=== PATIENT | female | born 1940 | race Caucasian/White ===

== ENCOUNTER 2016-08-28 13:55 | Inpatient (IN) | payer MEDICARE, BC, OTHER ==
[2016-08-28] MEDS ORDERED: SODIUM CHLORIDE 0.9% 1,000 ML IV STA ×2 (13:59)
[2016-08-28] MEDS ORDERED: ONDANSETRON 4 MG/2 ML VIAL IVP STA (13:59)
--- NOTE | 2016-08-28 14:12 | ED ---
General Adult HPI - General Stated complaint: Vomiting Time Seen by Provider: 08/28/16 13:59 Source: RN notes reviewed, old records reviewed - History of Present Illness Initial comments: This is a 76-year-old female to the ER for evaluation. Patient presents today for evaluation regarding nausea. Patient states she has some dizziness, epigastric fullness, bloating, nausea. She's had nausea and vomiting now for 2 days. Patient has no medical history of similar symptoms. No abdominal surgical history. No dysuria no diarrhea. No travel history, no sick contacts. No recent hospitalizations. No fevers. Nausea is worse after meals or after eating or trying to attempt to drink. - Related Data Home Medications Medication Instructions Recorded Confirmed Aspirin [Adult Low Dose Aspirin EC] 162 mg PO HS 08/28/16 08/28/16 Cetirizine HCl [Zyrtec] 10 mg PO DAILY 08/28/16 08/28/16 Cholecalciferol [Vitamin D3] 1,000 unit PO HS 08/28/16 08/28/16 Colloidal Oatmeal [Eucerin Eczema 1 applic TOPICAL HS 08/28/16 08/28/16 Relief] Cyclobenzaprine HCl 10 mg PO DAILY PRN 08/28/16 08/28/16 Ibuprofen [Motrin] 800 mg PO Q8H PRN 08/28/16 08/28/16 LORazepam [Ativan] 0.5 mg PO DAILY PRN 08/28/16 08/28/16 Levothyroxine Sodium [Synthroid] 100 mcg PO DAILY 08/28/16 08/28/16 Lisinopril [Prinivil] 10 mg PO DAILY 08/28/16 08/28/16 Meclizine HCl 25 mg PO Q6H PRN 08/28/16 08/28/16 Nystatin 100,000Unit/gm Cream 1 applic TOPICAL BID 08/28/16 08/28/16 [Mycostatin Cream] Polyethylene Glycol 3350 [Miralax] 17 gm PO DAILY PRN 08/28/16 08/28/16 Pramipexole Di-HCl [Mirapex] 0.125 mg PO BID 08/28/16 08/28/16 Pravastatin Sodium [Pravachol] 40 mg PO HS 08/28/16 08/28/16 Sertraline HCl [Zoloft] 50 mg PO DAILY 08/28/16 08/28/16 fentaNYL 100MCG/HR PATCH 1 patch TRANSDERM Q72H 08/28/16 08/28/16 [Duragesic 100MCG/HR] sitaGLIPtin PHOS/metFORMIN HCL 1 tab PO BID 08/28/16 08/28/16 [Janumet 50-1,000 mg Tablet] traMADol HCL [Ultram] 50 mg PO Q8H PRN 08/28/16 08/28/16 Allergies Allergy/AdvReac Type Severity Reaction Status Date / Time Penicillins AdvReac Unknown Verified 08/28/16 14:28 Review of Systems ROS Statement: Those systems with pertinent positive or pertinent negative responses have been documented in the HPI. ROS Other: All systems not noted in ROS Statement are negative. General Exam General appearance: alert, in no apparent distress Head exam: Present: atraumatic, normocephalic, normal inspection Eye exam: Present: normal appearance, PERRL, EOMI. Absent: scleral icterus, conjunctival injection, periorbital swelling ENT exam: Present: normal exam, mucous membranes moist Neck exam: Present: normal inspection. Absent: tenderness, meningismus, lymphadenopathy Respiratory exam: Present: normal lung sounds bilaterally. Absent: respiratory distress, wheezes, rales, rhonchi, stridor Cardiovascular Exam: Present: regular rate, normal rhythm, normal heart sounds. Absent: systolic murmur, diastolic murmur, rubs, gallop, clicks GI/Abdominal exam: Present: soft, normal bowel sounds. Absent: distended, tenderness, guarding, rebound, rigid Extremities exam: Present: normal inspection, full ROM, normal capillary refill. Absent: tenderness, pedal edema, joint swelling, calf tenderness Back exam: Present: normal inspection Neurological exam: Present: alert, oriented X3, CN II-XII intact Psychiatric exam: Present: normal affect, normal mood Skin exam: Present: warm, dry, intact, normal color. Absent: rash Course Vital Signs 08/28/16 08/28/16 08/28/16 14:06 15:37 15:59 Temperature 97.0 F L 97.6 F 97.0 F L Pulse Rate 87 80 Respiratory 18 18 Rate Blood Pressure 165/63 162/100 O2 Sat by Pulse 97 99 Oximetry - Reevaluation(s) Reevaluation #1: 08/28/16 16:41 Patient without vomiting of blood here in emergency room EKG Findings - EKG Comments: EKG Findings:: EKG shows normal sinus rhythm at 71, para 24, QRS 86, QTC 436 Medical Decision Making - Medical Decision Making 36 female here for evaluation of nausea vomiting episode of upper GI bleed, coffee-ground emesis. patient has UTI will place on abx, patient is ok for admission - Lab Data Result diagrams: 08/28/16 14:12 08/28/16 14:12 Lab Results 08/28/16 08/28/16 08/28/16 Range/Units 14:12 14:12 14:12 WBC 9.3 (3.8-10.6) k/uL RBC 4.83 (3.80-5.40) m/uL Hgb 14.6 (11.4-16.0) gm/dL Hct 45.0 (34.0-46.0) % MCV 93.2 (80.0-100.0) fL MCH 30.2 (25.0-35.0) pg MCHC 32.4 (31.0-37.0) g/dL RDW 14.5 (11.5-15.5) % Plt Count 172 (150-450) k/uL Neutrophils % 76 % Lymphocytes % 17 % Monocytes % 4 % Eosinophils % 1 % Basophils % 1 % Neutrophils # 7.0 (1.3-7.7) k/uL Lymphocytes # 1.6 (1.0-4.8) k/uL Monocytes # 0.4 (0-1.0) k/uL Eosinophils # 0.1 (0-0.7) k/uL Basophils # 0.1 (0-0.2) k/uL PT (9.0-12.0) sec INR (<1.2) APTT (22.0-30.0) sec Sodium 141 (137-145) mmol/L Potassium 4.3 (3.5-5.1) mmol/L Chloride 107 (98-107) mmol/L Carbon Dioxide 21 L (22-30) mmol/L Anion Gap 13 mmol/L BUN 13 (7-17) mg/dL Creatinine 0.71 (0.52-1.04) mg/dL Est GFR (MDRD) Af Amer >60 (>60 ml/min/1.73 sqM) Est GFR (MDRD) Non-Af >60 (>60 ml/min/1.73 sqM) Glucose 130 H (74-99) mg/dL Plasma Lactic Acid Eric (0.7-2.0) mmol/L Calcium 9.4 (8.4-10.2) mg/dL Phosphorus 3.0 (2.5-4.5) mg/dL Magnesium 1.4 L (1.6-2.3) mg/dL Total Bilirubin 0.7 (0.2-1.3) mg/dL AST 32 (14-36) U/L ALT 30 (9-52) U/L Alkaline Phosphatase 111 (38-126) U/L Total Creatine Kinase 32 (30-135) U/L CK-MB (CK-2) 0.4 (0.0-2.4) ng/mL CK-MB (CK-2) Rel Index 1.3 Troponin I <0.012 (0.000-0.034) ng/mL Total Protein 6.3 (6.3-8.2) g/dL Albumin 3.1 L (3.5-5.0) g/dL Urine Color Urine Appearance (Clear) Urine pH (5.0-8.0) Ur Specific Mitchell (1.001-1.035) Urine Protein (Negative) Urine Glucose (UA) (Negative) Urine Ketones (Negative) Urine Blood (Negative) Urine Nitrite (Negative) Urine Bilirubin (Negative) Urine Urobilinogen (<2.0) mg/dL Ur Leukocyte Esterase (Negative) Urine RBC (0-5) /hpf Urine WBC (0-5) /hpf Urine WBC Clumps (None) /hpf Urine Bacteria (None) /hpf Urine Mucus (None) /hpf Urine Yeast (Budding) (None) /hpf Blood Type Blood Type Recheck Antibody Screen Antibody Identification Direct Antiglob Test Spec Expiration Date 08/28/16 08/28/16 08/28/16 Range/Units 14:12 14:12 14:12 WBC (3.8-10.6) k/uL RBC (3.80-5.40) m/uL Hgb (11.4-16.0) gm/dL Hct (34.0-46.0) % MCV (80.0-100.0) fL MCH (25.0-35.0) pg MCHC (31.0-37.0) g/dL RDW (11.5-15.5) % Plt Count (150-450) k/uL Neutrophils % % Lymphocytes % % Monocytes % % Eosinophils % % Basophils % % Neutrophils # (1.3-7.7) k/uL Lymphocytes # (1.0-4.8) k/uL Monocytes # (0-1.0) k/uL Eosinophils # (0-0.7) k/uL Basophils # (0-0.2) k/uL PT 12.1 H (9.0-12.0) sec INR 1.2 H (<1.2) APTT 23.8 (22.0-30.0) sec Sodium (137-145) mmol/L Potassium (3.5-5.1) mmol/L Chloride (98-107) mmol/L Carbon Dioxide (22-30) mmol/L Anion Gap mmol/L BUN (7-17) mg/dL Creatinine (0.52-1.04) mg/dL Est GFR (MDRD) Af Amer (>60 ml/min/1.73 sqM) Est GFR (MDRD) Non-Af (>60 ml/min/1.73 sqM) Glucose (74-99) mg/dL Plasma Lactic Acid Eric 3.4 H* (0.7-2.0) mmol/L Calcium (8.4-10.2) mg/dL Phosphorus (2.5-4.5) mg/dL Magnesium (1.6-2.3) mg/dL Total Bilirubin (0.2-1.3) mg/dL AST (14-36) U/L ALT (9-52) U/L Alkaline Phosphatase (38-126) U/L Total Creatine Kinase (30-135) U/L CK-MB (CK-2) (0.0-2.4) ng/mL CK-MB (CK-2) Rel Index Troponin I (0.000-0.034) ng/mL Total Protein (6.3-8.2) g/dL Albumin (3.5-5.0) g/dL Urine Color Urine Appearance (Clear) Urine pH (5.0-8.0) Ur Specific Mitchell (1.001-1.035) Urine Protein (Negative) Urine Glucose (UA) (Negative) Urine Ketones (Negative) Urine Blood (Negative) Urine Nitrite (Negative) Urine Bilirubin (Negative) Urine Urobilinogen (<2.0) mg/dL Ur Leukocyte Esterase (Negative) Urine RBC (0-5) /hpf Urine WBC (0-5) /hpf Urine WBC Clumps (None) /hpf Urine Bacteria (None) /hpf Urine Mucus (None) /hpf Urine Yeast (Budding) (None) /hpf Blood Type O Negative Blood Type Recheck No Antibody Screen POSITIVE Antibody Identification Anti-D Direct Antiglob Test Negative Spec Expiration Date 08/31/2016 - 231108/28/16 Range/Units 15:26 WBC (3.8-10.6) k/uL RBC (3.80-5.40) m/uL Hgb (11.4-16.0) gm/dL Hct (34.0-46.0) % MCV (80.0-100.0) fL MCH (25.0-35.0) pg MCHC (31.0-37.0) g/dL RDW (11.5-15.5) % Plt Count (150-450) k/uL Neutrophils % % Lymphocytes % % Monocytes % % Eosinophils % % Basophils % % Neutrophils # (1.3-7.7) k/uL Lymphocytes # (1.0-4.8) k/uL Monocytes # (0-1.0) k/uL Eosinophils # (0-0.7) k/uL Basophils # (0-0.2) k/uL PT (9.0-12.0) sec INR (<1.2) APTT (22.0-30.0) sec Sodium (137-145) mmol/L Potassium (3.5-5.1) mmol/L Chloride (98-107) mmol/L Carbon Dioxide (22-30) mmol/L Anion Gap mmol/L BUN (7-17) mg/dL Creatinine (0.52-1.04) mg/dL Est GFR (MDRD) Af Amer (>60 ml/min/1.73 sqM) Est GFR (MDRD) Non-Af (>60 ml/min/1.73 sqM) Glucose (74-99) mg/dL Plasma Lactic Acid Eric (0.7-2.0) mmol/L Calcium (8.4-10.2) mg/dL Phosphorus (2.5-4.5) mg/dL Magnesium (1.6-2.3) mg/dL Total Bilirubin (0.2-1.3) mg/dL AST (14-36) U/L ALT (9-52) U/L Alkaline Phosphatase (38-126) U/L Total Creatine Kinase (30-135) U/L CK-MB (CK-2) (0.0-2.4) ng/mL CK-MB (CK-2) Rel Index Troponin I (0.000-0.034) ng/mL Total Protein (6.3-8.2) g/dL Albumin (3.5-5.0) g/dL Urine Color Yellow Urine Appearance Cloudy H (Clear) Urine pH 6.0 (5.0-8.0) Ur Specific Mitchell 1.011 (1.001-1.035) Urine Protein Negative (Negative) Urine Glucose (UA) Negative (Negative) Urine Ketones Negative (Negative) Urine Blood Small H (Negative) Urine Nitrite Positive H (Negative) Urine Bilirubin Negative (Negative) Urine Urobilinogen 2.0 (<2.0) mg/dL Ur Leukocyte Esterase Large H (Negative) Urine RBC 2 (0-5) /hpf Urine WBC 92 H (0-5) /hpf Urine WBC Clumps Occasional H (None) /hpf Urine Bacteria Occasional H (None) /hpf Urine Mucus Rare H (None) /hpf Urine Yeast (Budding) Occasional H (None) /hpf Blood Type Blood Type Recheck Antibody Screen Antibody Identification Direct Antiglob Test Spec Expiration Date Disposition Clinical Impression: Gastrointestinal hemorrhage, UGIB (upper gastrointestinal bleed), Nausea & vomiting Disposition: ADMITTED IP TO THIS [facility] Condition: Fair Referrals: Lasha Johnson MD [Primary Care Provider] - 1-2 days
[2016-08-28] MEDS ORDERED: ESOMEPRAZOLE 20 MG in SODIUM CHLORIDE 0.9% 50 ML IVPB STA (14:19)
[2016-08-28 14:29] LABS: Basophils # (A) 0.1 k/uL (0-0.2); Basophils % (A) 1 %; CH 30.1; CHCM 32.4; Eosinophils # (A) 0.1 k/uL (0-0.7); Eosinophils % (A) 1 %; HDW 2.22; HGB 14.6 gm/dL (11.4-16.0); Luc # (Auto) 0.08; Luc % (Auto) 1; Lymphocytes # (A) 1.6 k/uL (1.0-4.8); Lymphocytes % (A) 17 %; MCH 30.2 pg (25.0-35.0); MCHC 32.4 g/dL (31.0-37.0); MCV 93.2 fL (80.0-100.0); Mean Platelet Volume 8.1; Monocytes # (A) 0.4 k/uL (0-1.0); Monocytes % (A) 4 %; Neutrophils % (A) 76 %; RBC 4.83 m/uL (3.80-5.40); RDW 14.5 % (11.5-15.5); WBC 9.3 k/uL (3.8-10.6); WBC (Perox) 9.02
[2016-08-28 14:34] LABS: INR 1.2 (<1.2); Partial Thromboplastin Time 23.8 sec (22.0-30.0); Prothrombin Time 12.1 sec (9.0-12.0)
[2016-08-28 14:38] LABS: ALT 30 U/L (9-52); AST 32 U/L (14-36); Alkaline Phosphatase 111 U/L (38-126); Anion Gap 13 mmol/L; Blood Urea Nitrogen 13 mg/dL (7-17); Calcium 9.4 mg/dL (8.4-10.2); Carbon Dioxide 21 mmol/L (22-30); Chloride 107 mmol/L (98-107); Glucose 130 mg/dL (74-99); Magnesium 1.4 mg/dL (1.6-2.3); Non-African American GFR(MDRD) >60 (>60 ml/min/1.73 sqM); Potassium 4.3 mmol/L (3.5-5.1); Sodium 141 mmol/L (137-145); Total Bilirubin 0.7 mg/dL (0.2-1.3); Total Protein 6.3 g/dL (6.3-8.2)
[2016-08-28 14:49] LABS: Creatine Kinase 32 U/L (30-135)
[2016-08-28 15:01] LABS: Creatine Kinase MB 0.4 ng/mL (0.0-2.4); Troponin I <0.012 ng/mL (0.000-0.034)
[2016-08-28 15:52] LABS: Appearance,Urine Cloudy (Clear); Bacteria,Urine Occasional /hpf; Bilirubin,Urine Negative (Negative); Glucose,Urine (UA) Negative (Negative); Ketones,Urine Negative (Negative); Leukocyte Esterase,Urine Large (Negative); Mucus,Urine Rare /hpf; Nitrite,Urine Positive (Negative); Particle Count 80585; Protein,Urine Negative (Negative); RBC,Urine 2 /hpf (0-5); Specific Gravity,Urine 1.011 (1.001-1.035); UA Billing (MACRO vs. MICRO) MICRO; WBC,Urine 92 /hpf (0-5)
[2016-08-28] MEDS ORDERED: cefTRIAXone 1,000 MG VIAL (IM USE) IM SCH (16:45)
[2016-08-28] MEDS ORDERED: LORazepam 0.5 MG TAB PO PRN (19:44)
[2016-08-28] MEDS ORDERED: MORPHINE SULFATE 4 MG/ML SYRINGE IVP PRN (19:46)
[2016-08-28] MEDS ORDERED: ONDANSETRON 4 MG/2 ML VIAL IVP PRN (19:57)
[2016-08-28 20:53] VITALS: BMI 54.1
--- NOTE | 2016-08-29 01:17 | XR ---
EXAM: XR Chest, 1 View CLINICAL HISTORY: Reason: r/o heart failure TECHNIQUE: Frontal view of the chest. COMPARISON: No relevant prior studies available. FINDINGS: Lungs: Mild pulmonary vascular congestion which may reflect a degree of failure. No consolidation. Pleural space: Unremarkable. No pneumothorax. Heart: Unremarkable. No cardiomegaly. Mediastinum: Unremarkable. Bones/joints: Unremarkable. Vasculature: Tortuous aorta. IMPRESSION: Mild pulmonary vascular congestion which may reflect a degree of failure.
[2016-08-29] MEDS ORDERED: POLYETHYLENE GLYCOL 3350 17 GM POWD.PACK PO PRN (01:25)
[2016-08-29] MEDS ORDERED: traMADol 50 MG TAB PO PRN (01:25)
[2016-08-29] MEDS ORDERED: MECLIZINE 25 MG TAB PO PRN (01:25)
[2016-08-29] MEDS ORDERED: HYDROmorphone 1 MG/ML 1 ML SYRINGE IVP PRN (01:26)
[2016-08-29] MEDS ORDERED: MINERAL OIL-WHITE PETROLATUM 120 GM JAR TOPICAL PRN (02:17)
[2016-08-29 02:36] LABS: CH 29.7; CHCM 30.8; HDW 2.26; HGB 12.4 gm/dL (11.4-16.0); Hypochromasia Slight; MCH 30.8 pg (25.0-35.0); MCHC 31.8 g/dL (31.0-37.0); MCV 96.8 fL (80.0-100.0); RBC 4.03 m/uL (3.80-5.40); RDW 14.4 % (11.5-15.5)
[2016-08-29 02:44] LABS: Anion Gap 8 mmol/L; Blood Urea Nitrogen 13 mg/dL (7-17); Calcium 8.8 mg/dL (8.4-10.2); Carbon Dioxide 22 mmol/L (22-30); Chloride 110 mmol/L (98-107); Glucose 95 mg/dL (74-99); Non-African American GFR(MDRD) >60 (>60 ml/min/1.73 sqM); Sodium 140 mmol/L (137-145)
[2016-08-29 05:48] LABS: Glucose,Whole Blood 95 mg/dL (75-99)
[2016-08-29] MEDS: INSULIN LISPRO (humaLOG) 300 UNIT/3 ML VIAL SQ SCH ×4 (05:54→21:15)
[2016-08-29] MEDS: LEVOTHYROXINE 100 MCG TAB PO SCH (06:26)
[2016-08-29] MEDS: LISINOPRIL 10 MG TAB PO SCH (08:19)
[2016-08-29] MEDS: LORATADINE 10 MG TAB PO SCH (08:20)
[2016-08-29] MEDS: SERTRALINE 50 MG TAB PO SCH (08:20)
[2016-08-29] MEDS: PRAMIPEXOLE 0.125 MG TAB PO SCH ×2 (08:20→19:51)
[2016-08-29] MEDS ORDERED: Magnesium Replacement Protocol 1 EACH MISC MISCELLANE PRN (08:52)
[2016-08-29] MEDS: MAGNESIUM SULFATE-D5W PMX 1 GM in DEXTROSE/WATER 1 100ML.BAG IVPB SCH ×3 (09:26→12:30)
--- NOTE | 2016-08-29 10:01 | P.CONS ---
History of Present Illness - Reason for Consult Consult date: 08/29/16 Coffee-ground emesis Requesting physician: Aicha Xie - History of Present Illness 76-year-old female wheelchair bound. PMH morbid obesity BMI 55 admitted with nausea vomiting UTI. Consultation requested for coffee-ground emesis. Patient stated she vomited 3 times the other day mostly food substances as well as small amount of dark colored bile. Denies epigastric/abdominal pain. No history of GI bleed or peptic ulcer disease. Denies gross hematemesis hematochezia or melena. Presently eating a regular diet without recurrent emesis or bleeding. Hemoglobin 12.4. BUN 13. Creatinine 0.6. INR 1.2. Platelet 161. Denies excessive usage of NSAIDs or aspirin. Takes 2 baby aspirins daily and occasional Motrin. No alcohol. No history of colonoscopy or EGD. Review of Systems Constitutional: Denies fever, chills, sweats, weight gain, or loss. HEENT: Negative for migraines, blurred vision or loss, earaches, drainage, tinnitus, oral mucosal lesions, dysphagia, or odynophagia. CARDIAC: Hyperlipidemia. Hypertension. Negative for chest pain, arrhythmias, or palpitation. RESPIRATORY: Negative for shortness of breath, hemoptysis, cough, or sputum production. GI: See HPI for pertinent findings. : Negative for hematuria, urgency, frequency, polyuria, or dysuria. GYNc: Denies possibility of . Negative vaginal discharge. MUSCULOSKELETAL: RLS. Negative for muscle aches, swelling, arthritis, and arthralgias. NEUROLOGIC: CVA/TIA. ENDOCRINE: Diabetes. Negative for thyroid problems. SKIN: Negative for rash or itching. PSYCHIATRIC: Negative history for depression. History of anxiety All systems: negative (See HPI) Past Medical History Past Medical History: CVA/TIA, Diabetes Mellitus, Hyperlipidemia, Hypertension, Osteoarthritis (OA) Additional Past Medical History / Comment(s): RLS History of Any Multi-Drug Resistant Organisms: None Reported Past Surgical History: Hysterectomy, Tonsillectomy Past Anesthesia/Blood Transfusion Reactions: No Reported Reaction Past Psychological History: Anxiety Smoking Status: Former smoker Past Alcohol Use History: None Reported Past Drug Use History: None Reported - Past Family History Mother Family Medical History: Cancer Father Family Medical History: No Reported History Medications and Allergies Home Medications Medication Instructions Recorded Confirmed Type Aspirin [Adult Low Dose Aspirin EC] 162 mg PO HS 08/28/16 08/29/16 History Cetirizine HCl [Zyrtec] 10 mg PO DAILY 08/28/16 08/29/16 History Cholecalciferol [Vitamin D3] 1,000 unit PO HS 08/28/16 08/28/16 History Colloidal Oatmeal [Eucerin Eczema 1 applic TOPICAL HS 08/28/16 08/29/16 History Relief] Cyclobenzaprine HCl 10 mg PO DAILY PRN 08/28/16 08/29/16 History Ibuprofen [Motrin] 800 mg PO Q8H PRN 08/28/16 08/29/16 History LORazepam [Ativan] 0.5 mg PO DAILY PRN 08/28/16 08/29/16 History Levothyroxine Sodium [Synthroid] 100 mcg PO DAILY 08/28/16 08/29/16 History Lisinopril [Prinivil] 10 mg PO DAILY 08/28/16 08/29/16 History Meclizine HCl 25 mg PO Q6H PRN 08/28/16 08/29/16 History Nystatin 100,000Unit/gm Cream 1 applic TOPICAL BID 08/28/16 08/29/16 History [Mycostatin Cream] Polyethylene Glycol 3350 [Miralax] 17 gm PO DAILY PRN 08/28/16 08/29/16 History Pramipexole Di-HCl [Mirapex] 0.125 mg PO BID 08/28/16 08/29/16 History Pravastatin Sodium [Pravachol] 40 mg PO HS 08/28/16 08/29/16 History Sertraline HCl [Zoloft] 50 mg PO DAILY 08/28/16 08/29/16 History fentaNYL 100MCG/HR PATCH 1 patch TRANSDERM Q72H 08/28/16 08/29/16 History [Duragesic 100MCG/HR] sitaGLIPtin PHOS/metFORMIN HCL 1 tab PO BID 08/28/16 08/29/16 History [Janumet 50-1,000 mg Tablet] traMADol HCL [Ultram] 50 mg PO Q8H PRN 08/28/16 08/29/16 History Allergies Allergy/AdvReac Type Severity Reaction Status Date / Time Penicillins AdvReac Unknown Verified 08/28/16 20:36 Physical Exam Vitals: Vital Signs Temp Pulse Pulse Resp BP BP Pulse Ox 08/29/16 08:20 96.8 F L 76 18 121/58 96 08/29/16 04:00 97.8 F 76 16 115/59 92 L 08/29/16 00:00 97.0 F L 81 16 128/86 94 L 08/28/16 20:02 97.3 F L 92 18 159/77 97 08/28/16 17:26 98.0 F 72 18 152/79 99 08/28/16 16:58 97.6 F 81 18 153/100 98 08/28/16 15:59 97.0 F L 80 18 162/100 99 08/28/16 15:37 97.6 F 08/28/16 14:06 97.0 F L 87 18 165/63 97 Intake and Output 08/28/16 08/29/16 08/29/16 22:59 06:59 14:59 Intake Total 600 Balance 600 Intake: IV 600 Sodium Chloride 0.9% 1, 600 000 ml @ 100 mls/hr IV . Q10H STA Rx#:[id number] Other: Voiding Method Bedpan Bedpan Incontinent Incontinent # Voids 1 Weight 143 kg 145 kg General appearance: The patient is alert, oriented, in no acute distress. HET: Head is normocephalic and atraumatic. Pupils are equal and reactive. Oropharynx is clear without lesions. Neck: Supple without lymphadenopathy. Trachea midline. Heart: S1 S2. Regular rate and rhythm. Lungs: No crackles or wheezes are heard. Abdomen: Soft, nontender, nondistended with bowel sounds. No peritoneal signs. No palpable organomegaly or masses. Extremities: Normal skin color and turgor. No cyanosis, rash, ulceration, clubbing, or edema. Radial and pedal pulses are 2/4 bilaterally. Neurological: No focal deficits. Strength and sensation are grossly intact. Results CBC & Chem 7: 08/29/16 02:05 08/29/16 02:05 Labs: Abnormal Lab Results - Last 24 Hours (Table) 08/28/16 08/28/16 08/28/16 Range/Units 14:12 14:12 14:12 PT 12.1 H (9.0-12.0) sec INR 1.2 H (<1.2) Chloride (98-107) mmol/L Carbon Dioxide 21 L (22-30) mmol/L Glucose 130 H (74-99) mg/dL Plasma Lactic Acid Eric 3.4 H* (0.7-2.0) mmol/L Magnesium 1.4 L (1.6-2.3) mg/dL Albumin 3.1 L (3.5-5.0) g/dL Urine Appearance (Clear) Urine Blood (Negative) Urine Nitrite (Negative) Ur Leukocyte Esterase (Negative) Urine WBC (0-5) /hpf Urine WBC Clumps (None) /hpf Urine Bacteria (None) /hpf Urine Mucus (None) /hpf Urine Yeast (Budding) (None) /hpf 08/28/16 08/28/16 08/28/16 Range/Units 15:26 18:32 22:21 PT (9.0-12.0) sec INR (<1.2) Chloride (98-107) mmol/L Carbon Dioxide (22-30) mmol/L Glucose (74-99) mg/dL Plasma Lactic Acid Eric 3.6 H* 2.5 H* (0.7-2.0) mmol/L Magnesium (1.6-2.3) mg/dL Albumin (3.5-5.0) g/dL Urine Appearance Cloudy H (Clear) Urine Blood Small H (Negative) Urine Nitrite Positive H (Negative) Ur Leukocyte Esterase Large H (Negative) Urine WBC 92 H (0-5) /hpf Urine WBC Clumps Occasional H (None) /hpf Urine Bacteria Occasional H (None) /hpf Urine Mucus Rare H (None) /hpf Urine Yeast (Budding) Occasional H (None) /hpf 08/29/16 Range/Units 02:05 PT (9.0-12.0) sec INR (<1.2) Chloride 110 H (98-107) mmol/L Carbon Dioxide (22-30) mmol/L Glucose (74-99) mg/dL Plasma Lactic Acid Eric (0.7-2.0) mmol/L Magnesium (1.6-2.3) mg/dL Albumin (3.5-5.0) g/dL Urine Appearance (Clear) Urine Blood (Negative) Urine Nitrite (Negative) Ur Leukocyte Esterase (Negative) Urine WBC (0-5) /hpf Urine WBC Clumps (None) /hpf Urine Bacteria (None) /hpf Urine Mucus (None) /hpf Urine Yeast (Budding) (None) /hpf Microbiology - Last 24 Hours (Table) 08/28/16 15:26 Urine Culture - Preliminary Urine,Catheterized Assessment and Plan (1) Coffee ground emesis Narrative/Plan: Suspect Delisa-Anderson tear possible gastritis possible esophagitis. Status: Acute (2) UTI (urinary tract infection) Status: Acute (3) UGIB (upper gastrointestinal bleed) Status: Acute Plan: 1. Patient is presently tolerating a regular diet without recurrent nausea vomiting or bleeding. Continue GI prophylaxis. Monitor CBC. Endoscopic exams not planned at this time but contingent on clinical course. Will reevaluate. Thank you for this kind referral and the opportunity to participate in the care of your patient. This consultation was discussed with Dr. Escamilla. The impression and plan of care have been directed as dictated.
[2016-08-29 11:57] LABS: Glucose,Whole Blood 140 mg/dL (75-99)
[2016-08-29 13:12] LABS: Hemoglobin A1C 5.2 % (4.2-6.1)
--- NOTE | 2016-08-29 15:29 | HP ---
DATE OF ADMISSION: 08/28/16 CHIEF COMPLAINT: Vomiting and gastrointestinal bleed. HISTORY OF PRESENT ILLNESS: This is a 76-year-old woman with a past medical history of multiple medical problems including history of cerebrovascular accident/transient ischemic attack, history of diabetes mellitus, hypertension, hyperlipidemia , history of restless leg syndrome, being followed by Dr. Lozada in the outpatient setting, resident of [facility] [place]. The patient apparently had nausea today. Subsequently, the patient had vomiting. The patient also had dizziness, epigastric fullness and bloating and the patient was apparently monitored for the last two days, the patient also had coffee ground emesis, upper gastrointestinal bleeding and the patient was taken to [facility] and admitted to the hospital for further evaluation and treatment. CBC was within normal limits. Hemoglobin 14.6, however, lactic acid was found to be 3.4 and 2.5. UA shows evidence of UTI also. There is no history of fever, rigors or chills. There is no history of any headache, loss of consciousness or seizures. Past medical history of CVA/TIA, diabetes mellitus, hypertension, hyperlipidemia , DJD. History of anxiety. Medications prior to admission are: Home medications are: 1. Miralax 17 mg daily prn. 2. Meclizine 25 mg q.h.s. 3. Ultram 50 mg. 4. Motrin. 5. Flexeril. 6. Mirapex. 8. Nystatin one application b.i.d. 9. mg po b.i.d. 10. Zoloft 50 mg daily. 11. Pravachol 40 mg q.h.s. 12. Vitamin D3 1000 q.h.s. 13. Prinivil 10 mg daily. 14. Synthroid 100 mcg po daily. 15. Duragesic patch 100 mcg q72 hours. 16. Eucerin q.h.s. 18. Aspirin 160 mg q.h.s. ALLERGIES: PENICILLIN. FAMILY HISTORY: History of cancer in the family. SOCIAL HISTORY: Previous history of smoking. No history of current alcohol intake. REVIEW OF SYSTEMS: ENT: Diminished vision. Diminished hearing. Cardiovascular : No angina or palpitations. Respiratory: As mentioned earlier. GI: As mentioned earlier. : As mentioned earlier. Nervous system: No numbness or weakness. Allergy/Immunology: No asthma or hayfever. Musculoskeletal: As mentioned earlier. Hematology/Oncology: No history of anemia. Endocrine: History of diabetes mellitus. No hypothyroidism. Constitutional: As mentioned earlier. Dermatology: As mentioned earlier. Rheumatology: Negative. Psychiatry: As mentioned earlier. PHYSICAL EXAMINATION: Alert and oriented times three. Pulse 81. Blood pressure 128/86. Respiratory rate 16, temperature 97 degrees. Pulse ox 94% on room air. HEENT: Conjunctivae normal. Oral mucosa moist. NECK: No JVD. No carotid bruit. No lymph node enlargement. Cardiovascular: S1, S2 muffled. No S3, no S4. Respiratory: Breath sounds diminished at the bases. Bilateral scattered rhonchi and crackles. Abdomen is soft. Obese. Nontender. No mass palpable. Legs: Bilateral leg edema. Dry skin and erythema also noted. Nervous system: Higher functions as mentioned earlier. Moves all four limbs. No focal motor or sensory deficits. Lymphatics: No lymph nodes palpable in the neck, axillae or groin. SKIN: No ulcer, rash or bleeding. LABS: CBC within normal limits. INR 1.2. Plasma lactic acid 3.4, 3.6 and 2.5. Magnesium 1.4. UA noted. ASSESSMENT: 1. Vomiting, possible upper gastrointestinal bleeding, rule out peptic ulcer disease, or gastritis. 2. Increased plasma lactic acid, possibly from urinary tract infection and dehydration. 3. Urinary tract infection with possible sepsis. 4. History of cerebrovascular accident/transient ischemic attack. 5. Diabetes mellitus, Type 2. 6. Hypertension. 7. Hyperlipidemia. 8. Degenerative joint disease. 9. Restless leg syndrome. 10. History of anxiety. RECOMMENDATIONS AND DISCUSSION: In this 76-year-old woman who presented with multiple complex medical issues, we will monitor the patient closely. Continue the current medications. Continue symptomatic treatment. Broad spectrum IV antibiotics. Resume the home medications. Deep venous thrombosis prophylaxis. IV fluids. Otherwise, we will resume other medications. See orders for further details. We will also check Accu-Cheks a.c. and q.h.s. also. Otherwise, prognosis is guarded because of the multiple complex medical issues. Further recommendations to follow. See orders for further details. Discussed with the patient. MTDD
[2016-08-29] MEDS: CEFUROXIME 250 MG TAB PO SCH (19:51)
[2016-08-29] MEDS: PRAVASTATIN SODIUM 40 MG TAB PO SCH (19:53)
[2016-08-29 20:09] LABS: Glucose,Whole Blood 108 mg/dL (75-99)
[2016-08-29 21:12] LABS: Glucose,Whole Blood 104 mg/dL (75-99)
[2016-08-29 21:17] VITALS: RESP 16
[2016-08-30] MEDS: LEVOTHYROXINE 100 MCG TAB PO SCH (05:57)
[2016-08-30 07:32] LABS: Glucose,Whole Blood 109 mg/dL (75-99)
[2016-08-30] MEDS: INSULIN LISPRO (humaLOG) 300 UNIT/3 ML VIAL SQ SCH ×4 (07:49→21:31)
[2016-08-30] MEDS: CEFUROXIME 250 MG TAB PO SCH (08:45)
[2016-08-30] MEDS: PRAMIPEXOLE 0.125 MG TAB PO SCH ×2 (08:45→21:36)
[2016-08-30] MEDS: LISINOPRIL 10 MG TAB PO SCH (08:45)
[2016-08-30] MEDS: LORATADINE 10 MG TAB PO SCH (08:45)
[2016-08-30] MEDS: SERTRALINE 50 MG TAB PO SCH (08:45)
--- NOTE | 2016-08-30 10:12 | P.PN ---
Subjective Principal diagnosis: Coffee-ground emesis 76-year-old female with acute UTI and multiple emesis possible coffee-ground. No recurrence of coffee-ground emesis. Patient is tolerating a regular diet without abdominal pain. Nursing reports no episodes of hematemesis or melena. Hemoglobin yesterday 12.4. CBC not obtained today. Objective - Vital Signs Vital signs: Vital Signs Temp 96.6 F L 08/30/16 07:00 Pulse 80 08/30/16 07:00 Resp 16 08/30/16 07:00 BP 112/50 08/30/16 07:00 Pulse Ox 94 L 08/30/16 07:00 Intake & Output 08/29/16 08/30/16 08/30/16 18:59 06:59 18:59 Intake Total 400 240 Balance 400 240 Intake: Intake, IV Titration 300 Amount Magnesium Sulfate-D5w Pmx 300 1 gm In Dextrose/Water 1 100ml.bag @ 100 mls/hr IVPB Q1H ALLY Rx#: [id number] Oral 100 240 Other: Voiding Method Bedpan Incontinent # Voids 1 - Exam General appearance: The patient is alert, oriented, in no acute distress. HET: Head is normocephalic and atraumatic. Pupils are equal and reactive. Oropharynx is clear without lesions. Neck: Supple without lymphadenopathy. Trachea midline. Heart: S1 S2. Regular rate and rhythm. Lungs: No crackles or wheezes are heard. Abdomen: Soft, nontender, nondistended with bowel sounds. No peritoneal signs. No palpable organomegaly or masses. Extremities: Normal skin color and turgor. No cyanosis, rash, ulceration, clubbing, or edema. Radial and pedal pulses are 2/4 bilaterally. Neurological: No focal deficits. Strength and sensation are grossly intact. - Labs CBC & Chem 7: 08/29/16 02:05 08/29/16 02:05 Labs: Abnormal Lab Results - Last 24 Hours (Table) 08/29/16 08/29/16 08/29/16 Range/Units 11:50 17:03 21:07 POC Glucose (mg/dL) 140 H 108 H 104 H (75-99) mg/dL 08/30/16 Range/Units 07:29 POC Glucose (mg/dL) 109 H (75-99) mg/dL Microbiology - Last 24 Hours (Table) 08/29/16 02:05 Blood Culture - Preliminary Blood No Growth after 24 hours 08/28/16 15:26 Urine Culture - Preliminary Urine,Catheterized Gram Neg Bacilli Assessment and Plan (1) Coffee ground emesis Narrative/Plan: Suspect Delisa-Anderson tear possible gastritis possible esophagitis. Status: Acute (2) UTI (urinary tract infection) Status: Acute (3) UGIB (upper gastrointestinal bleed) Status: Acute Plan: 1. Patient is presently tolerating a regular diet without recurrent nausea vomiting or bleeding. Continue GI prophylaxis. Monitor CBC. Endoscopic exams not planned at this time. We'll follow as needed. Discharge per medicine. Assessment and plan a care discussed with Dr. Escamilla
[2016-08-30 11:31] LABS: Glucose,Whole Blood 142 mg/dL (75-99)
[2016-08-30] MEDS: ceFAZolin 1,000 MG in DEXTROSE/WATER 1 50ML.BAG IVPB SCH ×2 (15:46→23:37)
--- NOTE | 2016-08-30 16:12 | PN ---
DATE OF SERVICE: 08/29/16 This 76-year-old woman who was admitted with vomiting and possible GI bleed, also appears to have UTI. Urine culture showing gram negative bacilli. Hemoglobin is rather stable around 12.4 down from 14.6. Lactic acid improved from 1 to 1.8 from 2.6. Gastroenterology has evaluated the patient and recommended advanced diet at this time. The possibility of Delisa-Anderson syndrome also noted. Past medical history reviewed. Review of systems: CARDIOVASCULAR: No angina or palpitations. Respiratory: As mentioned earlier. GI: As mentioned earlier. : No dysuria. Nervous system: Diffusely weak. Current mediations are reviewed and include: 1. Ceftin 500 mg po b.i.d. 2. Dilaudid 0.5 mg q6h. 3. Synthroid. 4. Zestril. 5. Claritin. 6. Ativan. 7. Antivert. 8. Zofran. 9. Miralax. 10. Pravachol. On exam, the patient is alert and oriented times two. Pulse 92. Blood pressure is 130/52. Respiratory rate 16. Temperature 97.3 degrees. Pulse ox 94% on room air. HEENT: Conjunctivae normal. NECK: No JVD. Cardiovascular: S1, S2 muffled. Respiratory: Breath sounds diminished at the bases. Scattered rhonchi and crackles. Abdomen is soft. Nontender. No mass palpable. Legs: No edema. No swelling. Nervous system: Diffusely weak. The labs are reviewed. Lactic acid is 1.8. CBC within normal limits. FINAL ASSESSMENT: 1. Vomiting postoperative gastrointestinal bleeding, rule out peptic ulcer disease, gastritis or Delisa-Anderson syndrome. 2. Urinary tract infarct with sepsis, present on admission with increased plasma lactic acid. 3. History of cerebrovascular accident/transient ischemic attack. 4. Diabetes mellitus Type 2. 5. Hypertension. 6. Hyperlipidemia. 7. Degenerative joint disease. 8. Restless leg syndrome. 9. History of anxiety. RECOMMENDATIONS AND DISCUSSION: Recommend to continue the current medications. Continue with monitoring. Symptomatic treatment. Otherwise, closely monitor. Continue with antibiotics. Continue the rest of the medications. Closely follow with gastroenterology. Guarded prognosis. Further recommendations to follow. MTDD
[2016-08-30 18:10] LABS: Glucose,Whole Blood 126 mg/dL (75-99)
[2016-08-30 21:24] LABS: Glucose,Whole Blood 94 mg/dL (75-99)
[2016-08-30] MEDS: PRAVASTATIN SODIUM 40 MG TAB PO SCH (21:36)
[2016-08-31] MEDS: LEVOTHYROXINE 100 MCG TAB PO SCH (05:20)
--- NOTE | 2016-08-31 07:17 | PN ---
DATE OF SERVICE: 08/30/2016 This is a 76-year-old woman who was admitted with vomiting and GI bleed, also had a UTI with sepsis also. Patient is complaining of tiredness and weakness. No fever, no cough. On exam, alert and oriented x3. Pulse 80, blood pressure 112/55, respirations 16, temperature 98.6, pulse ox 94% on room air. HEENT: Conjunctivae are normal. NECK: No jugular venous distension. CARDIOVASCULAR SYSTEM: S1, S2, muffled. RESPIRATORY: Breath sounds diminished at the bases, a few scattered rhonchi, no crackles. ABDOMEN: Soft, nontender, no mass palpable. NERVOUS SYSTEM: Unchanged. Labs are noted. ASSESSMENT: 1. Vomiting, possible upper gastrointestinal bleeding, rule out peptic ulcer disease and gastritis. 2. Increased plasma lactic acid, possible urinary tract infection with sepsis and dehydration. 3. History of cerebrovascular accident and transient ischemic attack. 4. Diabetes mellitus type 2. 5. Hypertension. RECOMMENDATION: Recommend to continue with the current medication and symptomatic treatment. Continue with IV antibiotics. Follow the cultures. Guarded prognosis because of multiple complex medical issues. Further recommendations to follow. MTDD
[2016-08-31 07:27] LABS: Glucose,Whole Blood 102 mg/dL (75-99)
[2016-08-31 07:36] VITALS: BP 130/63; PULSE 69; TEMP 96.4
[2016-08-31] MEDS: INSULIN LISPRO (humaLOG) 300 UNIT/3 ML VIAL SQ SCH ×3 (08:21→17:32)
[2016-08-31] MEDS: LORATADINE 10 MG TAB PO SCH (08:22)
[2016-08-31] MEDS: LISINOPRIL 10 MG TAB PO SCH (08:22)
[2016-08-31] MEDS: ceFAZolin 1,000 MG in DEXTROSE/WATER 1 50ML.BAG IVPB SCH (08:22)
[2016-08-31] MEDS: PRAMIPEXOLE 0.125 MG TAB PO SCH (08:22)
[2016-08-31] MEDS: SERTRALINE 50 MG TAB PO SCH (08:22)
[2016-08-31 12:34] LABS: Glucose,Whole Blood 108 mg/dL (75-99)
--- NOTE | 2016-08-31 13:46 | P.DS ---
Providers Date of admission: 08/28/16 16:33 Attending physician: Aicha Xie Primary care physician: [facility] Course: This 76-year-old woman was admitted with vomiting and suspected with GI bleeding. Patient improved significantly. The patient also had UTI with sepsis present on admission possibly chronic. Plasma lactic acid elevated. Patient responded to antibiotics. On exam vitals are stable. Cardio system S1- S2 normal. Abdomen soft nontender nervous system no change. The patient improved significantly. The patient is being discharged back to [facility]. Total time taken is 35 minutes. Final diagnosis 1. UTI with sepsis and due to E. coli as on admission. 2. Vomiting possible acute gastritis. 3. Increased vascular lactic acid secondary to sepsis 4. Diabetes type 2 5. Hypertension Patient Condition at Discharge: Fair Plan - Discharge Summary New Discharge Prescriptions: New Cefuroxime [Ceftin] 500 mg PO BID #10 tab LORazepam [Ativan] 0.5 mg PO HS PRN #10 tab PRN Reason: Agitation INSULIN LISPRO (HumaLOG) [humaLOG] 0 unit SQ ACHS #1 vial Pantoprazole Sodium [Protonix] 40 mg PO DAILY #1 tablet.dr Calcium Carbonate [Tums] 500 mg PO BID #1 chewable Sucralfate [Carafate] 1 gm PO ACHS #120 tablet INSULIN LISPRO (HumaLOG) [humaLOG] 0 unit SQ ACHS #1 vial Continue Polyethylene Glycol 3350 [Miralax] 17 gm PO DAILY PRN PRN Reason: Constipation Meclizine HCl 25 mg PO Q6H PRN PRN Reason: DIZZINESS Cyclobenzaprine HCl 10 mg PO DAILY PRN PRN Reason: Muscle Spasm Pramipexole Di-HCl [Mirapex] 0.125 mg PO BID Nystatin 100,000Unit/gm Cream [Mycostatin Cream] 1 applic TOPICAL BID Sertraline HCl [Zoloft] 50 mg PO DAILY Pravastatin Sodium [Pravachol] 40 mg PO HS Cholecalciferol [Vitamin D3] 1,000 unit PO HS Lisinopril [Prinivil] 10 mg PO DAILY Levothyroxine Sodium [Synthroid] 100 mcg PO DAILY Colloidal Oatmeal [Eucerin Eczema Relief] 1 applic TOPICAL HS Cetirizine HCl [Zyrtec] 10 mg PO DAILY traMADol HCL [Ultram] 50 mg PO Q8H PRN #20 PRN Reason: Pain Discontinued Ibuprofen [Motrin] 800 mg PO Q8H PRN PRN Reason: Pain fentaNYL 100MCG/HR PATCH [Duragesic 100MCG/HR] 1 patch TRANSDERM Q72H Aspirin [Adult Low Dose Aspirin EC] 162 mg PO HS Discharge Medication List Cetirizine HCl [Zyrtec] 10 mg PO DAILY 08/28/16 [History] Cholecalciferol [Vitamin D3] 1,000 unit PO HS 08/28/16 [History] Colloidal Oatmeal [Eucerin Eczema Relief] 1 applic TOPICAL HS 08/28/16 [History] Cyclobenzaprine HCl 10 mg PO DAILY PRN 08/28/16 [History] Levothyroxine Sodium [Synthroid] 100 mcg PO DAILY 08/28/16 [History] Lisinopril [Prinivil] 10 mg PO DAILY 08/28/16 [History] Meclizine HCl 25 mg PO Q6H PRN 08/28/16 [History] Nystatin 100,000Unit/gm Cream [Mycostatin Cream] 1 applic TOPICAL BID 08/28/16 [ History] Polyethylene Glycol 3350 [Miralax] 17 gm PO DAILY PRN 08/28/16 [History] Pramipexole Di-HCl [Mirapex] 0.125 mg PO BID 08/28/16 [History] Pravastatin Sodium [Pravachol] 40 mg PO HS 08/28/16 [History] Sertraline HCl [Zoloft] 50 mg PO DAILY 08/28/16 [History] Cefuroxime [Ceftin] 500 mg PO BID #10 tab 08/30/16 [Rx] INSULIN LISPRO (HumaLOG) [humaLOG] 0 unit SQ ACHS #1 vial 08/30/16 [Rx] LORazepam [Ativan] 0.5 mg PO HS PRN #10 tab 08/30/16 [Rx] Pantoprazole Sodium [Protonix] 40 mg PO DAILY #1 tablet 08/30/16 [Rx] traMADol HCL [Ultram] 50 mg PO Q8H PRN #20 08/30/16 [Rx] Calcium Carbonate [Tums] 500 mg PO BID #1 chewable 08/31/16 [Rx] INSULIN LISPRO (HumaLOG) [humaLOG] 0 unit SQ ACHS #1 vial 08/31/16 [Rx] Sucralfate [Carafate] 1 gm PO ACHS #120 tablet 08/31/16 [Rx] Follow up Appointment(s)/Referral(s): Lasha Johnson MD [Primary Care Provider] - 3 Days Gaby Escamilla MD [STAFF PHYSICIAN] - 2 Weeks Patient Instructions/Handouts: Gastrointestinal Bleeding (DC) Activity/Diet/Wound Care/Special Instructions: [facility] Aspirin on hold Diet: Cardiac, diabetic, bland diet Accu-Cheks before meals and at bedtime Activity: as tolerated cbc,bmp in 3 days Discharge Disposition: TRANSFER TO SNF/F
== END 2016-08-31 17:38 | DRG 871 ==
LOC: EC 13:55 → 6SEL 16:33 → 4MS4W 08-29 20:39
PROVIDERS: ADMIT Hospitalist; ATTEND Hospitalist
DX: A41.51 Sepsis due to Escherichia coli [E. coli] (principal); K29.01 Acute gastritis with bleeding; N39.0 Urinary tract infection, site not specified; E11.9 Type 2 diabetes mellitus without complications; E86.0 Dehydration; E66.01 Morbid (severe) obesity due to excess calories; I10 Essential (primary) hypertension; E78.5 Hyperlipidemia, unspecified; G25.81 Restless legs syndrome; M19.90 Unspecified osteoarthritis, unspecified site; F41.9 Anxiety disorder, unspecified; R32 Unspecified urinary incontinence; H91.90 Unspecified hearing loss, unspecified ear; H54.7 Unspecified visual loss; Z68.43 Body mass index [BMI] 50.0-59.9, adult; Z79.82 Long term (current) use of aspirin; Z79.899 Other long term (current) drug therapy; Z79.84 Long term (current) use of oral hypoglycemic drugs; Z87.891 Personal history of nicotine dependence; Z99.3 Dependence on wheelchair; Z88.8 Allergy status to other drugs, medicaments and biological substances
CPT/HCPCS: 36415; 71010; 80048; 80053; 81001; 82550; 82553; 83036; 83605; 83735; 84100; 84484; 85025; 85027; 85610; 85730; 86850; 86870; 86880; 86900; 86901; 86902; 87040; 87077; 87086; 87186; 93005; 96361; 96365; 96367; 96375; 99285

== ENCOUNTER 2017-03-28 06:32 | Inpatient (IN) | payer MEDICARE, BC, OTHER ==
[2017-03-28] MEDS ORDERED: SODIUM CHLORIDE 0.9% 1,000 ML IV STA (06:39)
--- NOTE | 2017-03-28 06:41 | ED ---
General Adult HPI - General Stated complaint: poss stroke Time Seen by Provider: 03/28/17 06:36 Source: RN notes reviewed, old records reviewed - History of Present Illness Initial comments: This is a 76-year-old female to the ER for evaluation regarding altered mental status, possible TIA. Patient has history of CVA diabetes hypertension. History of TIA. Patient's brought in today for mental lodged for evaluation. Of unresponsiveness blank stare and left-sided weakness. At this point patient is awake and alert is responding to questions. No known change in medications. Patient denies complaint - Related Data Home Medications Medication Instructions Recorded Confirmed Cetirizine HCl [Zyrtec] 10 mg PO DAILY 08/28/16 03/28/17 Cholecalciferol [Vitamin D3] 1,000 unit PO HS 08/28/16 03/28/17 Colloidal Oatmeal [Eucerin Eczema 1 applic TOPICAL HS 08/28/16 03/28/17 Relief] Levothyroxine Sodium [Synthroid] 100 mcg PO DAILY 08/28/16 03/28/17 Lisinopril [Prinivil] 10 mg PO DAILY 08/28/16 03/28/17 Polyethylene Glycol 3350 [Miralax] 17 gm PO DAILY@0700 08/28/16 03/28/17 Pramipexole Di-HCl [Mirapex] 0.125 mg PO HS 08/28/16 03/28/17 Pravastatin Sodium [Pravachol] 40 mg PO HS 08/28/16 03/28/17 Sertraline HCl [Zoloft] 50 mg PO HS 08/28/16 03/28/17 Acetaminophen Tab [Tylenol Tab] 650 mg PO Q6H PRN 03/28/17 03/28/17 Artificial Tears-Hypromellose 1 drops BOTH EYES DAILY 03/28/17 03/28/17 [Artificial Tear Drops] Bisacodyl [Dulcolax] 10 mg RECTAL DAILY PRN 03/28/17 03/28/17 Magnesium Hydroxide [Milk of 2,400 mg PO DAILY PRN 03/28/17 03/28/17 Magnesia] Menthol [Biofreeze] 1 applic TOPICAL BID 03/28/17 03/28/17 Omeprazole [PriLOSEC] 20 mg PO DAILY 03/28/17 03/28/17 Sennosides [Senna] 8.6 mg PO HS 03/28/17 03/28/17 Triamcinolone 0.1% Cream [Kenalog] 1 applicatio TOPICAL DAILY PRN 03/28/1703/28 fentaNYL 100MCG/HR PATCH 1 patch TRANSDERM Q72H 03/28/17 03/28/17 [Duragesic 100MCG/HR] Previous Rx's Medication Instructions Recorded traMADol HCL [Ultram] 50 mg PO Q8H PRN #20 08/30/16 Allergies Allergy/AdvReac Type Severity Reaction Status Date / Time Penicillins AdvReac Unknown Verified 08/28/16 20:36 Review of Systems ROS Statement: Those systems with pertinent positive or pertinent negative responses have been documented in the HPI. ROS Other: All systems not noted in ROS Statement are negative. Past Medical History Past Medical History: CVA/TIA, Diabetes Mellitus, Hyperlipidemia, Hypertension, Osteoarthritis (OA) Additional Past Medical History / Comment(s): RLS History of Any Multi-Drug Resistant Organisms: None Reported Past Surgical History: Hysterectomy, Tonsillectomy Past Anesthesia/Blood Transfusion Reactions: No Reported Reaction Past Psychological History: Anxiety Smoking Status: Former smoker Past Alcohol Use History: None Reported Past Drug Use History: None Reported - Past Family History Mother Family Medical History: Cancer Father Family Medical History: No Reported History General Exam - General Exam Comments Initial Comments: NIH of 0 General appearance: alert, in no apparent distress Head exam: Present: atraumatic, normocephalic, normal inspection Eye exam: Present: normal appearance, PERRL, EOMI. Absent: scleral icterus, conjunctival injection, periorbital swelling ENT exam: Present: normal exam, mucous membranes moist Neck exam: Present: normal inspection. Absent: tenderness, meningismus, lymphadenopathy Respiratory exam: Present: normal lung sounds bilaterally. Absent: respiratory distress, wheezes, rales, rhonchi, stridor Cardiovascular Exam: Present: regular rate, normal rhythm, normal heart sounds. Absent: systolic murmur, diastolic murmur, rubs, gallop, clicks GI/Abdominal exam: Present: soft, normal bowel sounds. Absent: distended, tenderness, guarding, rebound, rigid Extremities exam: Present: normal inspection, full ROM, normal capillary refill. Absent: tenderness, pedal edema, joint swelling, calf tenderness Back exam: Present: normal inspection Neurological exam: Present: alert, oriented X3, CN II-XII intact Psychiatric exam: Present: normal affect, normal mood Skin exam: Present: warm, dry, intact, normal color. Absent: rash Course Vital Signs 03/28/17 06:35 Temperature 97.2 F L Pulse Rate 75 Respiratory 16 Rate Blood Pressure 151/61 O2 Sat by Pulse 98 Oximetry EKG Findings - EKG Comments: EKG Findings:: EKG shows sinus rhythm rate of 75, MI and, QRS 90, QTc 417 Medical Decision Making - Medical Decision Making 36 female the ER with history of CVA, patient's coming in with unresponsiveness and left-sided weakness, will admit for neurology evaluation regarding TIA, no persistent neuro deficits now. - Lab Data Result diagrams: 03/28/17 06:50 03/28/17 06:50 Lab Results 03/28/17 03/28/17 03/28/17 Range/Units 06:34 06:50 06:50 WBC 8.3 (3.8-10.6) k/uL RBC 4.57 (3.80-5.40) m/uL Hgb 13.1 (11.4-16.0) gm/dL Hct 41.9 (34.0-46.0) % MCV 91.6 (80.0-100.0) fL MCH 28.7 (25.0-35.0) pg MCHC 31.3 (31.0-37.0) g/dL RDW 13.4 (11.5-15.5) % Plt Count 159 (150-450) k/uL Neutrophils % 55 % Lymphocytes % 33 % Monocytes % 6 % Eosinophils % 4 % Basophils % 1 % Neutrophils # 4.6 (1.3-7.7) k/uL Lymphocytes # 2.8 (1.0-4.8) k/uL Monocytes # 0.5 (0-1.0) k/uL Eosinophils # 0.3 (0-0.7) k/uL Basophils # 0.1 (0-0.2) k/uL PT (9.0-12.0) sec INR (<1.2) APTT (22.0-30.0) sec Sodium (137-145) mmol/L Potassium (3.5-5.1) mmol/L Chloride (98-107) mmol/L Carbon Dioxide (22-30) mmol/L Anion Gap mmol/L BUN (7-17) mg/dL Creatinine (0.52-1.04) mg/dL Est GFR (MDRD) Af Amer (>60 ml/min/1.73 sqM) Est GFR (MDRD) Non-Af (>60 ml/min/1.73 sqM) Glucose (74-99) mg/dL POC Glucose (mg/dL) 96 (75-99) mg/dL POC Glu Wrecking Supervisor ID Abbey Salazar Calcium (8.4-10.2) mg/dL Phosphorus (2.5-4.5) mg/dL Magnesium (1.6-2.3) mg/dL Total Bilirubin (0.2-1.3) mg/dL AST (14-36) U/L ALT (9-52) U/L Alkaline Phosphatase (38-126) U/L Total Creatine Kinase 35 (30-135) U/L Total Protein (6.3-8.2) g/dL Albumin (3.5-5.0) g/dL 03/28/17 03/28/17 Range/Units 06:50 06:50 WBC (3.8-10.6) k/uL RBC (3.80-5.40) m/uL Hgb (11.4-16.0) gm/dL Hct (34.0-46.0) % MCV (80.0-100.0) fL MCH (25.0-35.0) pg MCHC (31.0-37.0) g/dL RDW (11.5-15.5) % Plt Count (150-450) k/uL Neutrophils % % Lymphocytes % % Monocytes % % Eosinophils % % Basophils % % Neutrophils # (1.3-7.7) k/uL Lymphocytes # (1.0-4.8) k/uL Monocytes # (0-1.0) k/uL Eosinophils # (0-0.7) k/uL Basophils # (0-0.2) k/uL PT 11.1 (9.0-12.0) sec INR 1.2 H (<1.2) APTT 24.7 (22.0-30.0) sec Sodium 141 (137-145) mmol/L Potassium 4.8 (3.5-5.1) mmol/L Chloride 108 H (98-107) mmol/L Carbon Dioxide 24 (22-30) mmol/L Anion Gap 9 mmol/L BUN 31 H (7-17) mg/dL Creatinine 0.87 (0.52-1.04) mg/dL Est GFR (MDRD) Af Amer >60 (>60 ml/min/1.73 sqM) Est GFR (MDRD) Non-Af >60 (>60 ml/min/1.73 sqM) Glucose 118 H (74-99) mg/dL POC Glucose (mg/dL) (75-99) mg/dL POC Glu Wrecking Supervisor ID Calcium 9.3 (8.4-10.2) mg/dL Phosphorus 4.2 (2.5-4.5) mg/dL Magnesium 1.8 (1.6-2.3) mg/dL Total Bilirubin 0.6 (0.2-1.3) mg/dL AST 32 (14-36) U/L ALT 21 (9-52) U/L Alkaline Phosphatase 96 (38-126) U/L Total Creatine Kinase (30-135) U/L Total Protein 6.5 (6.3-8.2) g/dL Albumin 3.0 L (3.5-5.0) g/dL Disposition Clinical Impression: Transient cerebral ischemia Disposition: ADMITTED IP TO THIS HOSP Condition: Fair Referrals: Lasha Johnson MD [Primary Care Provider] - 1-2 days
[2017-03-28 06:45] LABS: Glucose,Whole Blood 96 mg/dL (75-99)
[2017-03-28 07:10] LABS: Basophils # (A) 0.1 k/uL (0-0.2); Basophils % (A) 1 %; Eosinophils # (A) 0.3 k/uL (0-0.7); Eosinophils % (A) 4 %; HCT 41.9 % (34.0-46.0); HGB 13.1 gm/dL (11.4-16.0); Lymphocytes # (A) 2.8 k/uL (1.0-4.8); Lymphocytes % (A) 33 %; MCH 28.7 pg (25.0-35.0); MCHC 31.3 g/dL (31.0-37.0); MCV 91.6 fL (80.0-100.0); Mean Platelet Volume 7.3; Monocytes # (A) 0.5 k/uL (0-1.0); Monocytes % (A) 6 %; Neutrophils # (A) 4.6 k/uL (1.3-7.7); Neutrophils % (A) 55 %; Platelet Count 159 k/uL (150-450); RBC 4.57 m/uL (3.80-5.40); RDW 13.4 % (11.5-15.5); WBC 8.3 k/uL (3.8-10.6)
[2017-03-28 07:19] LABS: INR 1.2 (<1.2); Partial Thromboplastin Time 24.7 sec (22.0-30.0); Prothrombin Time 11.1 sec (9.0-12.0)
--- NOTE | 2017-03-28 07:22 | XR ---
EXAMINATION TYPE: XR chest 2V DATE OF EXAM: 03/28/2017 COMPARISON: Chest x-ray August 29, 2016 HISTORY: Right sided weakness. TECHNIQUE: Frontal and lateral views of the chest are obtained. FINDINGS: There is chronic parenchymal change with developing right upper lung opacity There is no p leural effusion or pneumothorax seen. The cardiac silhouette size is enlarged on current study with atherosclerotic and ectatic aorta. The osseous structures remain demineralized. IMPRESSION: Cardiomegaly and chronic medical change with possible developing right upper lobe infilt rate and/or atelectasis. Consider progress chest x-ray.
[2017-03-28 07:39] LABS: ALT 21 U/L (9-52); AST 32 U/L (14-36); Alkaline Phosphatase 96 U/L (38-126); Anion Gap 9 mmol/L; Blood Urea Nitrogen 31 mg/dL (7-17); Calcium 9.3 mg/dL (8.4-10.2); Carbon Dioxide 24 mmol/L (22-30); Chloride 108 mmol/L (98-107); Glucose 118 mg/dL (74-99); Magnesium 1.8 mg/dL (1.6-2.3); Phosphorus 4.2 mg/dL (2.5-4.5); Potassium 4.8 mmol/L (3.5-5.1); Sodium 141 mmol/L (137-145); Total Bilirubin 0.6 mg/dL (0.2-1.3); Total Protein 6.5 g/dL (6.3-8.2)
[2017-03-28 07:40] LABS: Creatine Kinase 35 U/L (30-135)
[2017-03-28 07:53] LABS: Creatine Kinase MB 0.2 ng/mL (0.0-2.4); Troponin I <0.012 ng/mL (0.000-0.034)
[2017-03-28 07:57] LABS: Appearance,Urine Cloudy (Clear); Bacteria,Urine Many /hpf; Bilirubin,Urine Negative (Negative); Blood,Urine Small (Negative); Color,Urine Yellow; Glucose,Urine (UA) Negative (Negative); Ketones,Urine Negative (Negative); Leukocyte Esterase,Urine Large (Negative); Mucus,Urine Rare /hpf; Nitrite,Urine Positive (Negative); Protein,Urine Negative (Negative); RBC,Urine 5 /hpf (0-5); Specific Gravity,Urine 1.013 (1.001-1.035); Urobilinogen,Urine <2.0 mg/dL (<2.0); WBC,Urine 85 /hpf (0-5)
[2017-03-28] MEDS ORDERED: cefTRIAXone IN SWFI 1,000 MG/10 ML SYRINGE IVP STA (08:04)
[2017-03-28] MEDS: SODIUM CHLORIDE 0.9% 1,000 ML IV SCH ×2 (08:32→17:39)
--- NOTE | 2017-03-28 09:29 | CT ---
EXAMINATION TYPE: CT brain wo con DATE OF EXAM: 03/28/2017 COMPARISON: 02/02/2013 HISTORY: 76-year-old male Weakness TECHNIQUE: Examination was done in axial plane without intravenous contrast. Coronal and sagittal r econstructions performed. CT DLP: 943.1 mGycm Automated exposure control for dose reduction was used. FINDINGS: There is some prominent streak artifact relating to the calvarium on both sides, but left greater sridhar n right. Allowing for this limitation, there is no evidence of acute intracranial hemorrhage, acute ischemic changes, mass, mass-effect, or extra-axial fluid collection. There is no effacement of cerebral sulc i or basal subarachnoid cisterns. There is no hydrocephalus. There is no midline shift. Watson-white matter distinction is preserved. Old white matter infarct left subinsular region is unchanged. Moderate patchy and confluent periventr icular and deep white matter hypodensities are also unchanged. Normal variant hyperostosis frontalis interna. Paranasal sinuses and mastoid air cells are well pneum atized. Orbits and globes are intact. IMPRESSION: Some prominent calvarial artifacts. No definite acute intracranial abnormality seen allowing for thes e artifacts. Moderate burden of chronic small vessel ischemic disease with old white matter infarct l eft subinsular region.
[2017-03-28 12:06] VITALS: BMI 53.5
[2017-03-28] MEDS ORDERED: BISACODYL 10 MG SUPP RECTAL PRN (14:47)
[2017-03-28] MEDS ORDERED: MAGNESIUM HYDROXIDE 2,400 MG/10 ML CUP PO PRN (14:47)
--- NOTE | 2017-03-28 15:40 | P.HPIM ---
History of Present Illness 76-year-old female to the ER for evaluation regarding altered mental status, possible TIA. Patient has history of CVA diabetes hypertension. History of TIA. Patient came in from subacute rehabilitation as patient was stating without any seizures and increased weakness in the right side although patient has baseline right-sided weakness with the left internal capsular lacunar stroke in the past CT of the head didn't show the same thing. Patient denied any fever chills nausea vomiting dysuria. Patient is complaining of occasional tremors which may be related to her tramadol which will be held and patient was comparing of restless leg syndrome echocardiac exam is being obtain lipid panel is being obtained neurology was consulted carotid Doppler is being obtained Review of Systems REVIEW OF SYSTEMS: CONSTITUTIONAL: No fever, no malaise, no fatigue. HEENT: No recent visual problems or hearing problems. Denied any sore throat. CARDIOVASCULAR: No chest pain, orthopnea, PND, no palpitations, no syncope. PULMONARY: No shortness of breath, no cough, no hemoptysis. GASTROINTESTINAL: No diarrhea, no nausea, no vomiting, no abdominal pain. Normoactive bowel sounds. NEUROLOGICAL: As mentioned in HPI HEMATOLOGICAL: Denies any bleeding or petechiae. GENITOURINARY: Denies any burning micturition, frequency, or urgency. MUSCULOSKELETAL/RHEUMATOLOGICAL: Denies any joint pain, swelling, or any muscle pain. ENDOCRINE: Denies any polyuria or polydipsia. The rest of the 14-point review of systems is negative. Past Medical History Past Medical History: CVA/TIA, Diabetes Mellitus, Hyperlipidemia, Hypertension, Osteoarthritis (OA) Additional Past Medical History / Comment(s): RLS History of Any Multi-Drug Resistant Organisms: None Reported Past Surgical History: Hysterectomy, Tonsillectomy Past Anesthesia/Blood Transfusion Reactions: No Reported Reaction Past Psychological History: Anxiety Smoking Status: Former smoker Past Alcohol Use History: None Reported Past Drug Use History: None Reported - Past Family History Mother Family Medical History: Cancer Father Family Medical History: No Reported History Medications and Allergies Home Medications Medication Instructions Recorded Confirmed Type Cetirizine HCl [Zyrtec] 10 mg PO DAILY 08/28/16 03/28/17 History Cholecalciferol [Vitamin D3] 1,000 unit PO HS 08/28/16 03/28/17 History Colloidal Oatmeal [Eucerin Eczema 1 applic TOPICAL HS 08/28/16 03/28/17 History Relief] Levothyroxine Sodium [Synthroid] 100 mcg PO DAILY 08/28/16 03/28/17 History Lisinopril [Prinivil] 10 mg PO DAILY 08/28/16 03/28/17 History Polyethylene Glycol 3350 [Miralax] 17 gm PO DAILY@0700 08/28/16 03/28/17 History Pramipexole Di-HCl [Mirapex] 0.125 mg PO HS 08/28/16 03/28/17 History Pravastatin Sodium [Pravachol] 40 mg PO HS 08/28/16 03/28/17 History Sertraline HCl [Zoloft] 50 mg PO HS 08/28/16 03/28/17 History traMADol HCL [Ultram] 50 mg PO Q8H PRN #20 08/30/16 03/28/17 Rx Acetaminophen Tab [Tylenol Tab] 650 mg PO Q6H PRN 03/28/17 03/28/17 History Artificial Tears-Hypromellose 1 drops BOTH EYES DAILY 03/28/17 03/28/17 History [Artificial Tear Drops] Bisacodyl [Dulcolax] 10 mg RECTAL DAILY PRN 03/28/17 03/28/17 History Magnesium Hydroxide [Milk of 2,400 mg PO DAILY PRN 03/28/17 03/28/17 History Magnesia] Menthol [Biofreeze] 1 applic TOPICAL BID 03/28/17 03/28/17 History Omeprazole [PriLOSEC] 20 mg PO DAILY 03/28/17 03/28/17 History Sennosides [Senna] 8.6 mg PO HS 03/28/17 03/28/17 History Triamcinolone 0.1% Cream [Kenalog] 1 applicatio TOPICAL DAILY PRN 03/28/1703/28 History fentaNYL 100MCG/HR PATCH 1 patch TRANSDERM Q72H 03/28/17 03/28/17 History [Duragesic 100MCG/HR] Allergies Allergy/AdvReac Type Severity Reaction Status Date / Time Penicillins AdvReac Unknown Verified 08/28/16 20:36 Physical Exam Vitals: Vital Signs Temp Pulse Pulse Resp BP BP Pulse Ox 03/28/17 12:15 70 18 03/28/17 11:02 97.4 F L 66 18 119/68 99 03/28/17 10:49 97.6 F 70 18 127/63 03/28/17 09:49 97.5 F L 67 18 132/70 03/28/17 09:26 97.7 F 67 16 147/71 03/28/17 08:35 97.0 F L 69 20 138/89 98 03/28/17 06:35 97.2 F L 75 16 151/61 98 Intake and Output 03/28/17 03/28/17 03/28/17 06:59 14:59 22:59 Intake Total 0 Balance 0 Intake: Oral 0 Other: Voiding Method Diaper Incontinent # Voids 1 Weight 141.521 kg 141.521 kg Patient Weight 03/29/17 06:59 Weight 141.521 kg PHYSICAL EXAMINATION: GENERAL: The patient is alert and oriented x3, not in any acute distress. Well developed, well nourished. HEENT: Pupils are round and equally reacting to light. EOMI. No scleral icterus. No conjunctival pallor. Normocephalic, atraumatic. No pharyngeal erythema. No thyromegaly. CARDIOVASCULAR: S1 and S2 present. No murmurs, rubs, or gallops. PULMONARY: Chest is clear to auscultation, no wheezing or crackles. ABDOMEN: Soft, nontender, nondistended, normoactive bowel sounds. No palpable organomegaly. MUSCULOSKELETAL: No joint swelling or deformity. EXTREMITIES: No cyanosis, clubbing, or pedal edema. NEUROLOGICAL: She does have sensory deficits on the right side along with 3 x 5 strength in the right upper limb and 2 x 5 strength in the right lower limb SKIN: No rashes. Results CBC & Chem 7: 03/28/17 06:50 03/28/17 06:50 Labs: Abnormal Lab Results - Last 24 Hours (Table) 03/28/17 03/28/17 03/28/17 Range/Units 06:50 06:50 07:31 INR 1.2 H (<1.2) Chloride 108 H (98-107) mmol/L BUN 31 H (7-17) mg/dL Glucose 118 H (74-99) mg/dL Troponin I (0.000-0.034) ng/mL Albumin 3.0 L (3.5-5.0) g/dL Urine Appearance Cloudy H (Clear) Urine Blood Small H (Negative) Urine Nitrite Positive H (Negative) Ur Leukocyte Esterase Large H (Negative) Urine WBC 85 H (0-5) /hpf Urine WBC Clumps Occasional H (None) /hpf Urine Bacteria Many H (None) /hpf Urine Mucus Rare H (None) /hpf 03/28/17 Range/Units 13:18 INR (<1.2) Chloride (98-107) mmol/L BUN (7-17) mg/dL Glucose (74-99) mg/dL Troponin I 0.041 H* (0.000-0.034) ng/mL Albumin (3.5-5.0) g/dL Urine Appearance (Clear) Urine Blood (Negative) Urine Nitrite (Negative) Ur Leukocyte Esterase (Negative) Urine WBC (0-5) /hpf Urine WBC Clumps (None) /hpf Urine Bacteria (None) /hpf Urine Mucus (None) /hpf Thrombosis Risk Factor Assmnt - Choose All That Apply Each Factor Represents 1 point: Obesity (BMI >25) Each Risk Factor Represents 3 Points: Age 75 years or older Thrombosis Risk Factor Assessment Total Risk Factor Score: 4 Thrombosis Risk Factor Assessment Level: Moderate Risk Assessment and Plan Plan: -CVA or TIA involving the left cerebral hemisphere, stroke workup as mentioned in the HPI neurology was consulted. -Type 2 diabetes mellitus -hyperlipidemia -hypertension -Chronic low back pain -morbid obesity -Restless leg syndrome For above-mentioned chronic medical problems patient will be started on her home medications which are is appropriate
[2017-03-28 16:41] LABS: Glucose,Whole Blood 142 mg/dL (75-99)
[2017-03-28] MEDS: ASPIRIN 325 MG TAB PO SCH (17:24)
[2017-03-28] MEDS: PANTOPRAZOLE 40 MG TABLET PO SCH (17:24)
[2017-03-28] MEDS ORDERED: ATORVASTATIN 80 MG TAB PO SCH (21:00)
[2017-03-28] MEDS: MINERAL OIL-WHITE PETROLATUM 120 GM JAR TOPICAL SCH (21:11)
[2017-03-28] MEDS: SERTRALINE 50 MG TAB PO SCH (21:12)
[2017-03-28] MEDS: PRAVASTATIN SODIUM 40 MG TAB PO SCH (21:12)
[2017-03-28] MEDS: PRAMIPEXOLE 0.125 MG TAB PO SCH (21:12)
[2017-03-28 21:19] LABS: Glucose,Whole Blood 105 mg/dL (75-99)
[2017-03-29] MEDS: SODIUM CHLORIDE 0.9% 1,000 ML IV SCH ×2 (05:32→09:44)
[2017-03-29 05:56] LABS: Glucose,Whole Blood 103 mg/dL (75-99)
[2017-03-29] MEDS: LEVOTHYROXINE 100 MCG TAB PO SCH (06:06)
[2017-03-29] MEDS: PANTOPRAZOLE 40 MG TABLET PO SCH (06:06)
[2017-03-29] MEDS: POLYETHYLENE GLYCOL 3350 17 GM POWD.PACK PO SCH (06:06)
[2017-03-29 06:27] LABS: HCT 41.9 % (34.0-46.0); MCH 28.3 pg (25.0-35.0); MCHC 30.9 g/dL (31.0-37.0); MCV 91.7 fL (80.0-100.0); Platelet Count 164 k/uL (150-450); RBC 4.57 m/uL (3.80-5.40); RDW 13.2 % (11.5-15.5); WBC 9.6 k/uL (3.8-10.6)
[2017-03-29 06:39] LABS: Anion Gap 9 mmol/L; Blood Urea Nitrogen 28 mg/dL (7-17); Calcium 9.1 mg/dL (8.4-10.2); Carbon Dioxide 20 mmol/L (22-30); Chloride 110 mmol/L (98-107); Cholesterol 143 mg/dL (<200); Glucose 107 mg/dL (74-99); HDL Cholesterol 37 mg/dL (40-60); LDL Cholesterol,Calculated 86 mg/dL (0-99); Potassium 4.5 mmol/L (3.5-5.1); Sodium 139 mmol/L (137-145); Triglycerides 100 mg/dL (<150)
--- NOTE | 2017-03-29 08:25 | US ---
EXAMINATION TYPE: US carotid duplex BILAT DATE OF EXAM: 03/28/2017 COMPARISON: NONE CLINICAL HISTORY: Possible stroke. TIA EXAM MEASUREMENTS: RIGHT: Peak Systolic Velocity (PSV) cm/sec ----- Right CCA: 78.1 ----- Right ICA: 84.6 ----- Right ECA: 100.3 ICA/CCA ratio: 1.1 RIGHT: End Diastole cm/sec ----- Right CCA: 12.9 ----- Right ICA: 19.4 ----- Right ECA: 0 LEFT: Peak Systolic Velocity (PSV) cm/sec ----- Left CCA: 52.6 ----- Left ICA: 95.1 ----- Left ECA: 127.4 ICA/CCA ratio: 1.8 LEFT: End Diastole cm/sec ----- Left CCA: 12.0 ----- Left ICA: 16.0 ----- Left ECA: 11.1 VERTEBRALS (direction of flow): Right Vertebral: Antegrade Left Vertebral: Antegrade Rhythm: Normal Exam limitations on left side due to torturous vessels and shadowing. No significant stenosis seen Grayscale, color Doppler, spectral Doppler imaging performed of the carotid arteries. IMPRESSION: No hemodynamic significant stenosis of the proximal internal carotid arteries bilaterall y by Doppler criteria, an indirect measurement of carotid stenosis
[2017-03-29] MEDS: cefTRIAXone IN SWFI 1,000 MG/10 ML SYRINGE IVP SCH (09:41)
[2017-03-29] MEDS: ASPIRIN 325 MG TAB PO SCH (09:42)
--- NOTE | 2017-03-29 09:47 | CONS ---
CONSULTATION DATE OF CONSULTATION: 03/28/2017 CHIEF COMPLAINT: Transient ischemic attack. HISTORY OF PRESENT ILLNESS: Mrs. Swanson is a pleasant 76-year-old, female, who is being evaluated today on 03/28/2017 by the neurology service per the request of Dr. Xie for a transient ischemic attack. The patient was brought into [facility] Emergency Room after she had symptoms of slurred speech and a short-lived episode of expressive aphasia. The patient resides at a [facility] and has been there since she suffered a stroke a few years ago with residual right hemiparesis. When she was transferred to the emergency room, it was said that she was having staring spells. The patient remembers the episodes well and she states that she did not have any altered consciousness. She remembers everything that was said to her, but she was having difficulty producing speech to respond. She believes the episode lasted several minutes and resolved. She was not on any anti-platelet medications at home even though she did suffer a stroke a few years ago. A CT scan of the brain was done, which showed an old lacunar infarct involving the left subinsular region. There was also evidence of small vessel ischemic changes. Her chest x-ray showed possible developing left upper lobe infiltrate along with cardiomegaly and chronic changes. Her CBC and cardiac enzymes were normal. Her comprehensive metabolic profile showed slightly elevated BUN at 31 and glucose at 118. Her urinalysis showed 85 WBCs with large leukocyte esterase, and positive nitrites. She was started on Rocephin and admitted for further workup and management. A carotid Doppler has been ordered but the test has not been completed as of yet. At the time of my evaluation, she is lying in her bed and appears to be in no acute distress. Her family is at bedside and they state that she is back to her baseline. PAST MEDICAL HISTORY: Stroke, diabetes, dyslipidemia, hypertension, osteoarthritis, restless legs syndrome, history of hysterectomy and tonsillectomy. She also has history of anxiety disorder. SOCIAL HISTORY: The patient is a former smoker. She denies any alcohol or drug use. FAMILY HISTORY: Positive for cancer. HOME MEDICATIONS: Reviewed in the chart. ALLERGIES: PENICILLIN. REVIEW OF SYSTEMS: CONSTITUTIONAL: Positive for fatigue. EYES: Negative. ENT: Negative. CARDIOVASCULAR: Negative. RESPIRATORY: Negative. NEUROLOGICAL: As mentioned above. GASTROINTESTINAL: Positive for occasional heartburn. GENITOURINARY: Negative. PSYCHIATRIC: Positive for history of anxiety disorder. DERMATOLOGICAL: Negative. ENDOCRINE: Positive for history of diabetes. MUSCULOSKELETAL: Positive for occasional joint pain. PHYSICAL EXAM: Vital signs show a temperature of 97, pulse 76, respiration 18, blood pressure 132/94. GENERAL APPEARANCE: The patient is an obese female who appears to be in no acute distress. HEENT: Normocephalic, atraumatic, slight right facial droop is noticed at rest. Extraocular muscles are intact. Neck is supple with no masses felt. CARDIOVASCULAR: Regular rate and rhythm. ABDOMEN: Obese, nontender and nondistended. Extremities showed trace edema with no clubbing seen. NEUROLOGICAL EXAM: The patient is alert, aware and oriented x3. Speech and language are normal. Strength is 4+ out of 5 on the right and 5 minus out of 5 on the left. Sensory exam was normal to light touch in all 4 extremities. Cranial nerve testing showed a mild right facial droop. IMPRESSION: 1. Transient ischemic attack. 2. History of previous ischemic stroke with residual right hemiparesis. 3. Expressive aphasia, resolved. 4. Chronic pain syndrome. RECOMMENDATION: The patient does appear to have suffered a transient ischemic attack with a transient episode of expressive aphasia and questionable left upper extremity weakness. Her symptoms have completely resolved. She has been started on aspirin 325 mg daily. Continue IV hydration as tolerated. A carotid Doppler was ordered. I will order a fasting lipid panel, EEG, and serum homocystine level. Her CT scan of the brain was reviewed and it showed no acute findings. Her old left sided stroke was seen and she continues to have mild right hemiparesis from her old stroke. Continue DVT prophylaxis and GI prophylaxis. As for her chronic pain syndrome, the patient states that her pain has never been a factor since she has been nonmobile since her old stroke. I do recommend that she be weaned off of her Duragesic patch. This will be discussed further in the outpatient setting. Continue the rest of your current workup and management. I will continue to follow with you. Further recommendations to follow. Thank you for allowing me to participate in the care of your patient. If you have any questions, please feel free to contact me. JUDI / NATON: [id number] /
[2017-03-29 11:54] LABS: Glucose,Whole Blood 114 mg/dL (75-99)
[2017-03-29] MEDS: ARTIFICIAL TEARS-HYPROMELLOSE DROPS 15 ML BTL BOTH EYES SCH (13:08)
--- NOTE | 2017-03-29 13:48 | ECHOF ---
Referral Reason:TIA MEASUREMENTS -------- HEIGHT: 162.6 cm WEIGHT: 141.5 kg BP: 119/68 RVIDd: 3.1 cm (< 3.3) IVSd: 1.1 cm (0.6 - 1.1) LVIDd: 4.9 cm (3.9 - 5.3) LVPWd: 1.1 cm (0.6 - 1.1) IVSs: 1.6 cm LVIDs: 3.0 cm LVPWs: 1.6 cm LA Diam: 4.5 cm (2.7 - 3.8) Ao Diam: 3.1 cm (2.0 - 3.7) AV Cusp: 1.1 cm (1.5 - 2.6) LA Diam: 4.6 cm (2.7 - 3.8) MV E Salbador: 1.17 m/s MV DecT: 241 ms MV A Salbador: 1.06 m/s MV E/A Ratio: 1.11 AV maxP.31 mmHg AV meanP.32 mmHg RAP: 15.00 mmHg RVSP: 42.81 mmHg MV EF SLOPE: 65.26 mm/s (70 - 150) MV EXCURSION: 1.73 cm (> 18.000) FINDINGS -------- Resting bradycardia (HR<60bpm). This was a technically difficult study with suboptimal views. The left ventricular size is normal. There is borderline concentric left ventricular hypertrophy. Overall left ventricular systolic function is normal with, an EF between 55 - 60 %. The right ventricle is mildly enlarged. The left atrium is mildly dilated. The right atrium was not well visualized. 3ml of Lumason was utilized for enhancement of images. There is moderate aortic valve sclerosis. There is no evidence of aortic regurgitation. There is mild aortic stenosis present. Peak/mean gradient across the Aortic Valve is 18.31mmHg / 10.32mmHg. The mitral valve leaflets are mildly thickened. There is trace to mild mitral regurgitation. Mild tricuspid regurgitation present. There is mild pulmonary hypertension. The right ventricular systolic pressure, as measured by Doppler, is 42.81mmHg. Trace/mild (physiologic) pulmonic regurgitation. The aortic root size is normal. The inferior vena cava is dilated with no significant inspiratory collapse which is consistent estima jessica right atrial pressure of >20 mmHg. There is no pericardial effusion. CONCLUSIONS -------- 1. Resting bradycardia (HR<60bpm). 2. This was a technically difficult study with suboptimal views. 3. The left ventricular size is normal. 4. There is borderline concentric left ventricular hypertrophy. 5. Overall left ventricular systolic function is normal with, an EF between 55 - 60 %. 6. The right ventricle is mildly enlarged. 7. The left atrium is mildly dilated. 8. The right atrium was not well visualized. 9. 3ml of Lumason was utilized for enhancement of images. 10. There is moderate aortic valve sclerosis. 11. There is mild aortic stenosis present. 12. Peak/mean gradient across the Aortic Valve is 18.31mmHg / 10.32mmHg. 13. The mitral valve leaflets are mildly thickened. 14. There is trace to mild mitral regurgitation. 15. Mild tricuspid regurgitation present. 16. There is mild pulmonary hypertension. 17. The right ventricular systolic pressure, as measured by Doppler, is 42.81mmHg. 18. Trace/mild (physiologic) pulmonic regurgitation. 19. The aortic root size is normal. 20. The inferior vena cava is dilated with no significant inspiratory collapse which is consistent es timated right atrial pressure of >20 mmHg. 21. There is no pericardial effusion. TUBER MACHINE CUTTER: Thee Teixeira RDCS
--- NOTE | 2017-03-29 14:45 | P.PN ---
Subjective Progress Note Date: 03/29/17 Principal diagnosis: Patient is a pleasant 76-year-old female who is being followed by the neurology service for transient ischemic attack. Patient had been living in a assisted for the last 4 years following a stroke that left her with residual right hemiparesis. Patient was having staring spells and inability to speak. Patient was brought to [facility] for further evaluation. Patient denies any loss of consciousness. Patient denies headache. Computed tomography scan of the brain showed old lacunar infarct involving the left subinsular region. CT also showed evidence of small vessel ischemic changes. It is not clear why patient was not on antiplatelet therapy but she has since been started on aspirin 325 mg daily. Carotid Doppler was done and showed no hemodynamically significant stenosis. Her urinalysis showed evidence for urinary tract infection. She is currently on antibiotics. Patient denies any return of symptoms. At the time of my evaluation, patient is resting comfortably in bed and appears to be in no acute distress. Objective - Vital Signs Vital signs: Vital Signs Temp 97.6 F 03/29/17 12:00 Pulse 62 03/29/17 12:00 Resp 16 03/29/17 12:00 BP 120/56 03/29/17 08:20 Pulse Ox 100 03/29/17 12:00 Intake & Output 03/28/17 03/29/17 03/29/17 18:59 06:59 18:59 Intake Total 0 480 940 Balance 0 480 940 Weight 141.521 kg 146.5 kg Intake: Intake, IV Titration 400 Amount Sodium Chloride 0.9% 1, 400 000 ml @ 100 mls/hr IV . Q10H [facility] Rx#:[id number] Oral 0 480 540 Other: Voiding Method Diaper Incontinent Diaper Incontinent Incontinent # Voids 1 2 2 - Exam PHYSICAL EXAM: GENERAL APPEARANCE: Patient is a well-developed, female who appears to be in no acute distress. HEENT: Normocephalic, atraumatic, no facial asymmetry is seen. Neck is supple with no masses felt. CARDIOVASCULAR: Regular rate and rhythm. ABDOMEN: Nontender, nondistended. EXTREMITIES: Show clubbing. NEUROLOGICAL EXAM: Patient is awake, alert, and oriented 3. Speech and language are normal. Strength is 4/5 on the right upper extremity and 4-/5 in the right lower extremity and 5-/5 on the left upper and lower extremity. Sensory exam is normal to light touch in all 4 extremities. Patient has a mild right facial droop on cranial nerve testing. No seizures or tremor is noted. - Labs CBC & Chem 7: 03/29/17 05:58 03/29/17 05:58 Labs: Abnormal Lab Results - Last 24 Hours (Table) 03/28/17 03/28/17 03/28/17 Range/Units 13:18 16:35 19:44 MCHC (31.0-37.0) g/dL Chloride (98-107) mmol/L Carbon Dioxide (22-30) mmol/L BUN (7-17) mg/dL Glucose (74-99) mg/dL POC Glucose (mg/dL) 142 H (75-99) mg/dL Troponin I 0.041 H* 0.069 H* (0.000-0.034) ng/mL HDL Cholesterol (40-60) mg/dL 03/28/17 03/29/17 03/29/17 Range/Units 21:09 05:54 05:58 MCHC (31.0-37.0) g/dL Chloride 110 H (98-107) mmol/L Carbon Dioxide 20 L (22-30) mmol/L BUN 28 H (7-17) mg/dL Glucose 107 H (74-99) mg/dL POC Glucose (mg/dL) 105 H 103 H (75-99) mg/dL Troponin I (0.000-0.034) ng/mL HDL Cholesterol 37 L (40-60) mg/dL 03/29/17 03/29/17 Range/Units 05:58 11:52 MCHC 30.9 L (31.0-37.0) g/dL Chloride (98-107) mmol/L Carbon Dioxide (22-30) mmol/L BUN (7-17) mg/dL Glucose (74-99) mg/dL POC Glucose (mg/dL) 114 H (75-99) mg/dL Troponin I (0.000-0.034) ng/mL HDL Cholesterol (40-60) mg/dL Microbiology - Last 24 Hours (Table) 03/28/17 07:31 Urine Culture - Preliminary Urine,Voided Gram Neg Bacilli Assessment and Plan Plan: Impression: 1. Transient ischemic attack 2. History of previous ischemic stroke with residual right hemiparesis 3. Expressive aphasia, resolved 4. Chronic pain syndrome 5. Urinary tract infection Recommendation: Patient does appear to have suffered a transient ischemic attack with transient episode of expressive aphasia and questionable left upper extremity weakness. Her symptoms have completely resolved. As mentioned above , computed tomography scan of the brain showed no acute findings. CT did show old left-sided stroke. Carotid Doppler was negative for any hemodynamically significant stenosis. Her lipid panel was within normal limits except for low HDL of 37. Homocystine level is pending. EEG was done and results are pending. Patient reports she participated in physical therapy following her stroke 4 years ago and it is not clear why she did not continue. I recommend physical therapy and occupational therapy. Continue aspirin 325 mg daily. Continue statin therapy. Continue antibiotics for urinary tract infection. As for her chronic pain syndrome, I recommend patient be weaned off the Duragesic patch, however, this can be done as an outpatient. Continue current medical management. Continue neurological checks. I will continue to follow with you. Further recommendations to follow. I performed an examination of the patient and discussed the management with the RESTAURANT MAINTENANCE TECHNICIAN. I have reviewed the RESTAURANT MAINTENANCE TECHNICIAN notes and agree with the findings and plan of care.
--- NOTE | 2017-03-29 15:16 | P.PN ---
Subjective Patient was admitted for TIA all the neurological workup is negative patient is on antiplatelet therapy and statin. No overnight events. Patient had minimally elevated troponin of 0.06 EKG will be obtain cardiology will be consulted not high enough to say ST elevation myocardial infarction patient will not be started on any IV heparin at this point of time. Constitutional: Denied any fatigue denied any fever. Cardio vascular: denied any chest pain, palpitations Gastrointestinal denied any nausea vomiting Pulmonary: Denied any shortness of breath cough Neurologic denied any new focal deficits Objective - Vital Signs Vital signs: Vital Signs Temp 97.6 F 03/29/17 12:00 Pulse 62 03/29/17 12:00 Resp 16 03/29/17 12:00 BP 120/56 03/29/17 08:20 Pulse Ox 100 03/29/17 12:00 Intake & Output 03/28/17 03/29/17 03/29/17 18:59 06:59 18:59 Intake Total 0 480 1240 Balance 0 480 1240 Weight 141.521 kg 146.5 kg Intake: Intake, IV Titration 400 Amount Sodium Chloride 0.9% 1, 400 000 ml @ 100 mls/hr IV . Q10H [facility] Rx#:[id number] Oral 0 480 840 Other: Voiding Method Diaper Incontinent Diaper Incontinent Incontinent # Voids 1 2 2 - Exam PHYSICAL EXAMINATION: GENERAL: The patient is alert and oriented x3, not in any acute distress. Well developed, well nourished. HEENT: Pupils are round and equally reacting to light. EOMI. No scleral icterus. No conjunctival pallor. Normocephalic, atraumatic. No pharyngeal erythema. No thyromegaly. CARDIOVASCULAR: S1 and S2 present. No murmurs, rubs, or gallops. PULMONARY: Chest is clear to auscultation, no wheezing or crackles. ABDOMEN: Soft, nontender, nondistended, normoactive bowel sounds. No palpable organomegaly. MUSCULOSKELETAL: No joint swelling or deformity. EXTREMITIES: No cyanosis, clubbing, or pedal edema. NEUROLOGICAL: She does have sensory deficits on the right side along with 3 x 5 strength in the right upper limb and 2 x 5 strength in the right lower limb, mostly bedbound at baseline SKIN: No rashes. - Labs CBC & Chem 7: 03/29/17 05:58 03/29/17 05:58 Labs: Abnormal Lab Results - Last 24 Hours (Table) 03/28/17 03/28/17 03/28/17 Range/Units 16:35 19:44 21:09 MCHC (31.0-37.0) g/dL Chloride (98-107) mmol/L Carbon Dioxide (22-30) mmol/L BUN (7-17) mg/dL Glucose (74-99) mg/dL POC Glucose (mg/dL) 142 H 105 H (75-99) mg/dL Troponin I 0.069 H* (0.000-0.034) ng/mL HDL Cholesterol (40-60) mg/dL 03/29/17 03/29/17 03/29/17 Range/Units 05:54 05:58 05:58 MCHC 30.9 L (31.0-37.0) g/dL Chloride 110 H (98-107) mmol/L Carbon Dioxide 20 L (22-30) mmol/L BUN 28 H (7-17) mg/dL Glucose 107 H (74-99) mg/dL POC Glucose (mg/dL) 103 H (75-99) mg/dL Troponin I (0.000-0.034) ng/mL HDL Cholesterol 37 L (40-60) mg/dL 03/29/17 Range/Units 11:52 MCHC (31.0-37.0) g/dL Chloride (98-107) mmol/L Carbon Dioxide (22-30) mmol/L BUN (7-17) mg/dL Glucose (74-99) mg/dL POC Glucose (mg/dL) 114 H (75-99) mg/dL Troponin I (0.000-0.034) ng/mL HDL Cholesterol (40-60) mg/dL Microbiology - Last 24 Hours (Table) 03/28/17 07:31 Urine Culture - Preliminary Urine,Voided Gram Neg Bacilli Assessment and Plan Plan: -CVA or TIA involving the left cerebral hemisphere, stroke workup negative -Type 2 diabetes mellitus -hyperlipidemia -hypertension -Chronic low back pain -morbid obesity -Restless leg syndrome -Elevated troponins: Consult cardiology obtain EKG -Generalized deconditioning mostly bedbound we're working on disposition to a rehab facility in [place] For above-mentioned chronic medical problems patient will be started on her home medications which are is appropriate
[2017-03-29 17:06] LABS: Glucose,Whole Blood 99 mg/dL (75-99)
--- NOTE | 2017-03-29 17:13 | XR ---
EXAMINATION: XR chest 1V DATE AND TIME: 03/29/2017 5:04 PM ORDERING PROVIDER: Kwame Lira CLINICAL INDICATION: SOB cough and weakness TECHNIQUE: AP portable upright COMPARISON: 03/28/2017 at 7:11 AM DESCRIPTION: There is mild silhouetting of the pulmonary vasculature diffusely and bilaterally, by a fine reticular pattern of increased attenuation. The findings are consistent with mild interstitial p hase pulmonary edema. Cardiac silhouette mildly enlarged, but stable. The pleural spaces are negative. The skeletal structures are intact without focal findings. The soft tissues are unremarkable. IMPRESSION: Evidence of mild interstitial phase pulmonary edema.
--- NOTE | 2017-03-29 17:47 | EEG ---
ELECTROENCEPHALOGRAM REPORT DATE OF SERVICE: 03/29/2017. REASON FOR TESTING: Transient ischemic attack. DESCRIPTION OF THE PROCEDURE: This EEG was performed using a 21 channel digital electroencephalograph, following international 10-20 system. DESCRIPTION OF THE RECORDING: From the beginning of the tracing, with patient's eyes closed, the background rhythm was mostly consisting of 9 Hz alpha frequency in the posterior occipital leads. No obvious asymmetry is seen. Occasional muscle artifacts are noticed. Hyperventilation was not performed. Photic stimulation was performed with a good driving response seen. No pathological waves were elicited. Hyperventilation was not performed. The patient remains awake throughout the tracing. No epileptiform discharges were seen. INTERPRETATION: This awake EEG can be considered within normal limits. There was no asymmetry seen. No epileptiform discharges were noticed. The absence of epileptiform discharges does not rule out the diagnosis of epilepsy, therefore clinical correlation is recommended. MMMARIA FERNANDA / STANLEY: [id number] /
[2017-03-29] MEDS: PRAVASTATIN SODIUM 40 MG TAB PO SCH (20:38)
[2017-03-29] MEDS: PRAMIPEXOLE 0.125 MG TAB PO SCH (20:38)
[2017-03-29] MEDS: SERTRALINE 50 MG TAB PO SCH (20:38)
[2017-03-29] MEDS: MINERAL OIL-WHITE PETROLATUM 120 GM JAR TOPICAL SCH (20:40)
[2017-03-29 21:08] LABS: Glucose,Whole Blood 109 mg/dL (75-99)
[2017-03-30 06:14] LABS: Glucose,Whole Blood 89 mg/dL (75-99)
[2017-03-30] MEDS: LEVOTHYROXINE 100 MCG TAB PO SCH (06:36)
[2017-03-30] MEDS: POLYETHYLENE GLYCOL 3350 17 GM POWD.PACK PO SCH (06:36)
[2017-03-30] MEDS: PANTOPRAZOLE 40 MG TABLET PO SCH (06:36)
[2017-03-30] MEDS: ASPIRIN 325 MG TAB PO SCH (09:49)
[2017-03-30] MEDS: ARTIFICIAL TEARS-HYPROMELLOSE DROPS 15 ML BTL BOTH EYES SCH (09:50)
[2017-03-30] MEDS: cefTRIAXone IN SWFI 1,000 MG/10 ML SYRINGE IVP SCH (10:22)
--- NOTE | 2017-03-30 11:00 | P.CRDCN ---
History of Present Illness Consult date: 03/30/17 Requesting physician: Kwame Lira Reason for Consult (text): elevated troponin Chief complaint: aphasia History of present illness: This is a pleasant 76-year-old female patient who resides in an extended care facility. She has a known history of diabetes, hypertension, hyperlipidemia, and previous CVA. Presented to the emergency department after EMS was called for episode of aphasia with some mild left upper extremity weakness. According to the patient, episode lasted approximately 20 minutes. Computed tomography scan of the brain showed some prominent calvarial artifacts , no definite acute intracranial abnormalities seen allowing for these artifacts , moderate burden of chronic small vessel ischemic disease and old white matter infarct left subinsular region. Echocardiogram was performed and revealed normal LV systolic function with an ejection fraction between 55-60%, moderate aortic valve sclerosis, mild aortic stenosis and mild tricuspid regurgitation with trace to mild mitral regurgitation. Carotid duplex study revealed no hemodynamic significant stenosis of the proximal internal carotid arteries bilaterally with antegrade flow bilaterally. EKG shows sinus rhythm. Patient has no evidence of episodes of atrial fibrillation. Cardiology consult was placed due to mildly elevated troponins of less than 0.012, 0.041, 0.069, and 0.086. Patient denies complaints of chest discomfort. Upon examination, patient is resting comfortably in bed. She has no complaint of chest discomfort , shortness of breath, dizziness, lightheadedness, nausea or vomiting, abdominal pain or aphasia at this time. Past Medical History Past Medical History: CVA/TIA, Diabetes Mellitus, Hyperlipidemia, Hypertension, Osteoarthritis (OA) Additional Past Medical History / Comment(s): RLS History of Any Multi-Drug Resistant Organisms: None Reported Past Surgical History: Hysterectomy, Tonsillectomy Past Anesthesia/Blood Transfusion Reactions: No Reported Reaction Past Psychological History: Anxiety Smoking Status: Former smoker Past Alcohol Use History: None Reported Past Drug Use History: None Reported - Past Family History Mother Family Medical History: Cancer Father Family Medical History: No Reported History Medications and Allergies Home Medications Medication Instructions Recorded Confirmed Type Cetirizine HCl [Zyrtec] 10 mg PO DAILY 08/28/16 03/28/17 History Cholecalciferol [Vitamin D3] 1,000 unit PO HS 08/28/16 03/28/17 History Colloidal Oatmeal [Eucerin Eczema 1 applic TOPICAL HS 08/28/16 03/28/17 History Relief] Levothyroxine Sodium [Synthroid] 100 mcg PO DAILY 08/28/16 03/28/17 History Lisinopril [Prinivil] 10 mg PO DAILY 08/28/16 03/28/17 History Polyethylene Glycol 3350 [Miralax] 17 gm PO DAILY@0700 08/28/16 03/28/17 History Pramipexole Di-HCl [Mirapex] 0.125 mg PO HS 08/28/16 03/28/17 History Pravastatin Sodium [Pravachol] 40 mg PO HS 08/28/16 03/28/17 History Sertraline HCl [Zoloft] 50 mg PO HS 08/28/16 03/28/17 History traMADol HCL [Ultram] 50 mg PO Q8H PRN #20 08/30/16 03/28/17 Rx Acetaminophen Tab [Tylenol Tab] 650 mg PO Q6H PRN 03/28/17 03/28/17 History Artificial Tears-Hypromellose 1 drops BOTH EYES DAILY 03/28/17 03/28/17 History [Artificial Tear Drops] Bisacodyl [Dulcolax] 10 mg RECTAL DAILY PRN 03/28/17 03/28/17 History Magnesium Hydroxide [Milk of 2,400 mg PO DAILY PRN 03/28/17 03/28/17 History Magnesia] Menthol [Biofreeze] 1 applic TOPICAL BID 03/28/17 03/28/17 History Omeprazole [PriLOSEC] 20 mg PO DAILY 03/28/17 03/28/17 History Sennosides [Senna] 8.6 mg PO HS 03/28/17 03/28/17 History Triamcinolone 0.1% Cream [Kenalog] 1 applicatio TOPICAL DAILY PRN 03/28/1703/28 History fentaNYL 100MCG/HR PATCH 1 patch TRANSDERM Q72H 03/28/17 03/28/17 History [Duragesic 100MCG/HR] Allergies Allergy/AdvReac Type Severity Reaction Status Date / Time Penicillins AdvReac Unknown Verified 08/28/16 20:36 Physical Exam Vitals: Vital Signs Temp Pulse Resp BP Pulse Ox 03/30/17 08:57 98 03/30/17 08:15 62 18 02/23/18 07:51 97.0 F L 62 18 113/84 98 03/30/17 04:00 98.5 F 77 19 141/75 98 03/30/17 00:15 97.3 F L 71 19 136/62 97 03/29/17 20:30 98.2 F 72 19 135/71 99 03/29/17 20:15 72 19 03/29/17 16:00 97.6 F 65 16 134/59 100 03/29/17 12:00 97.6 F 62 16 100 Intake and Output 03/29/17 03/30/17 03/30/17 22:59 06:59 14:59 Intake Total 580 1140 240 Balance 580 1140 240 Intake: Intake, IV Titration 100 900 Amount Sodium Chloride 0.9% 1, 100 900 000 ml @ 100 mls/hr IV . Q10H [facility] Rx#:[id number] Oral 480 240 240 Other: Voiding Method Diaper Diaper Diaper Incontinent Incontinent Incontinent # Voids 1 Weight 146.5 kg PHYSICAL EXAMINATION: HEENT: Head is atraumatic, normocephalic. Pupils equal, round. Neck is supple. There is no elevated jugular venous pressure. HEART EXAMINATION: Heart sounds regular, S1 and S2 with a systolic ejection murmur. CHEST EXAMINATION: Lungs are clear to auscultation and precussion. No chest wall tenderness is noted on palpation or with deep breathing. ABDOMEN: Soft, obese, nontender. Bowel sounds are heard. No organomegaly noted. EXTREMITIES: 2+ peripheral pulses with evidence of moderate peripheral edema and evidence of cellulitis, according to the patient her legs are usually wrapped at the extended care facility. NEUROLOGIC patient is awake, alert and oriented x3. . Results 03/29/17 05:58 03/29/17 05:58 Cardiac Enzymes 03/29/17 Range/Units 16:28 Troponin I 0.086 H* (0.000-0.034) ng/mL Current Medications Generic Name Dose Route Start Last Admin Trade Name Freq PRN Reason Stop Dose Admin Artificial Tears 1 drops 03/29/17 09:00 03/30/17 09:50 Artificial Tear Drops BOTH EYES 1 drops DAILY [facility] Administration Aspirin 325 mg 03/28/17 15:00 03/30/17 09:49 Aspirin PO 325 mg DAILY [facility] Administration Bisacodyl 10 mg 03/28/17 14:47 Dulcolax RECTAL DAILY PRN Constipation Ceftriaxone Sodium 1,000 mg 03/29/17 09:00 03/30/17 10:22 Rocephin IVP 1,000 mg Q24HR [facility] Administration Fentanyl 1 patch 03/29/17 15:30 03/29/17 16:19 Duragesic 75mcg/Hr Patch TRANSDERM 1 patch Q72H [facility] Administration Levothyroxine Sodium 100 mcg 03/29/17 06:30 03/30/17 06:36 Synthroid PO 100 mcg DAILY@0630 [facility] Administration Magnesium Hydroxide 2,400 mg 03/28/17 14:47 Milk Of Magnesia PO DAILY PRN Constipation Multi-Ingred Cream/Lotion/Oil/Oint 1 applic 03/28/17 21:00 03/29/17 20:40 Eucerin Cream TOPICAL 1 applic HS [facility] Administration Pantoprazole Sodium 40 mg 03/28/17 15:00 03/30/17 06:36 Protonix PO 40 mg AC-[id number] [facility] Administration Polyethylene Glycol 17 gm 03/29/17 07:00 03/30/17 06:36 Miralax PO 17 gm DAILY@0700 [facility] Administration Pramipexole Dihydrochloride 0.125 mg 03/28/17 21:00 03/29/17 20:38 Mirapex PO 0.125 mg HS [facility] Administration Pravastatin Sodium 40 mg 03/28/17 21:00 03/29/17 20:38 Pravachol PO 40 mg HS [facility] Administration Sertraline HCl 50 mg 03/28/17 21:00 03/29/17 20:38 Zoloft PO 50 mg HS [facility] Administration Intake and Output 03/29/17 03/30/17 03/30/17 22:59 06:59 14:59 Intake Total 580 1140 240 Balance 580 1140 240 Intake: Intake, IV Titration 100 900 Amount Sodium Chloride 0.9% 1, 100 900 000 ml @ 100 mls/hr IV . Q10H [facility] Rx#:[id number] Oral 480 240 240 Other: Voiding Method Diaper Diaper Diaper Incontinent Incontinent Incontinent # Voids 1 Weight 146.5 kg 03/29/17 05:58 03/29/17 05:58 EKG Interpretations (text) Sinus rhythm Assessment and Plan Assessment: #1 TIA with symptoms of aphasia and mild left arm weakness #2 history of prior CVA #3 moderate aortic sclerosis and mild aortic stenosis #4 mildly elevated troponins, not indicative of myocardial injury #5 hypertension, controlled #6 hyperlipidemia #7 diabetes Plan: From cardiology perspective, medications were reviewed and we will continue the same. Continue aspirin daily. At this time we will follow the patient on an as -needed basis. Please do not hesitate to contact us with questions. 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 Patient was seen and examined.
[2017-03-30 11:54] LABS: Glucose,Whole Blood 101 mg/dL (75-99)
--- NOTE | 2017-03-30 13:19 | P.PN ---
Subjective Patient was admitted for TIA all the neurological workup is negative patient is on antiplatelet therapy and statin. No overnight events. Patient had minimally elevated troponin of 0.06 EKG will be obtain cardiology will be consulted not high enough to say ST elevation myocardial infarction patient will not be started on any IV heparin at this point of time. 03/30/2017 No overnight events patient was evaluated by cardiology no further recommendations from them. Patient is awaiting disposition to subacute rehabilitation. Constitutional: Denied any fatigue denied any fever. Cardio vascular: denied any chest pain, palpitations Gastrointestinal denied any nausea vomiting Pulmonary: Denied any shortness of breath cough Neurologic denied any new focal deficits Objective - Vital Signs Vital signs: Vital Signs Temp 97.0 F L 03/30/17 11:39 Pulse 64 03/30/17 11:39 Resp 18 03/30/17 11:39 BP 115/51 03/30/17 11:39 Pulse Ox 96 03/30/17 11:39 Intake & Output 03/29/17 03/30/17 03/30/17 18:59 06:59 18:59 Intake Total 1480 1480 240 Balance 1480 1480 240 Weight 146.5 kg Intake: Intake, IV Titration 400 1000 Amount Sodium Chloride 0.9% 1, 400 1000 000 ml @ 100 mls/hr IV . Q10H [facility] Rx#:[id number] Oral 1080 480 240 Other: Voiding Method Diaper Diaper Diaper Incontinent Incontinent Incontinent # Voids 2 1 - Exam PHYSICAL EXAMINATION: GENERAL: The patient is alert and oriented x3, not in any acute distress. Well developed, well nourished. HEENT: Pupils are round and equally reacting to light. EOMI. No scleral icterus. No conjunctival pallor. Normocephalic, atraumatic. No pharyngeal erythema. No thyromegaly. CARDIOVASCULAR: S1 and S2 present. No murmurs, rubs, or gallops. PULMONARY: Chest is clear to auscultation, no wheezing or crackles. ABDOMEN: Soft, nontender, nondistended, normoactive bowel sounds. No palpable organomegaly. MUSCULOSKELETAL: No joint swelling or deformity. EXTREMITIES: No cyanosis, clubbing, or pedal edema. NEUROLOGICAL: She does have sensory deficits on the right side along with 3 x 5 strength in the right upper limb and 2 x 5 strength in the right lower limb, mostly bedbound at baseline SKIN: No rashes. - Labs CBC & Chem 7: 03/29/17 05:58 03/29/17 05:58 Labs: Abnormal Lab Results - Last 24 Hours (Table) 03/29/17 03/29/17 03/29/17 Range/Units 05:58 16:28 21:02 POC Glucose (mg/dL) 109 H (75-99) mg/dL Troponin I 0.086 H* (0.000-0.034) ng/mL Homocysteine 16.87 H (4.00-14.00) umol/L 03/30/17 Range/Units 11:52 POC Glucose (mg/dL) 101 H (75-99) mg/dL Troponin I (0.000-0.034) ng/mL Homocysteine (4.00-14.00) umol/L Microbiology - Last 24 Hours (Table) 03/28/17 07:31 Urine Culture - Final Urine,Voided Escherichia coli Assessment and Plan Plan: -CVA or TIA involving the left cerebral hemisphere, stroke workup negative -Type 2 diabetes mellitus -hyperlipidemia -hypertension -Chronic low back pain -morbid obesity -Restless leg syndrome -Elevated troponins: Appreciate cardiology recommendations -Generalized deconditioning mostly bedbound we're working on disposition to a rehab facility in [place] For above-mentioned chronic medical problems patient will be started on her home medications which are is appropriate Possible discharge tomorrow to [facility]
--- NOTE | 2017-03-30 13:39 | P.PN ---
Subjective Progress Note Date: 03/30/17 Principal diagnosis: Patient is a pleasant 76-year-old female who is being followed by the neurology service for transient ischemic attack. Patient had been living in a shelter for the last 4 years following a stroke that left her with residual right hemiparesis. Patient was having staring spells and inability to speak. Patient was brought to [facility] for further evaluation. Patient denies any loss of consciousness. Patient denies headache. Computed tomography scan of the brain showed old lacunar infarct involving the left subinsular region. CT also showed evidence of small vessel ischemic changes. It is not clear why patient was not on antiplatelet therapy but she has since been started on aspirin 325 mg daily. Carotid Doppler was done and showed no hemodynamically significant stenosis. Her urinalysis showed evidence for urinary tract infection. She is currently on antibiotics. Patient denies any return of symptoms. At the time of my evaluation, patient is resting comfortably in bed and appears to be in no acute distress. 03/30/2017 Patient is a pleasant 76-year-old female who is being followed by the neurology service for TIA. No new neurological deficits noted. Patient is awake alert and conversant. Moves all extremities. Computed tomography scan of the brain showed old lacunar infarct involving left subinsular region. CT also revealed evidence of small vessel ischemic changes. Patient is on aspirin and statin therapy. Carotid Doppler showed no hemodynamically significant stenosis. Patient has generalized deconditioning from being bed bound for most of the last 4 years. Physical therapy is currently working with her. At the time of my evaluation, patient is resting comfortably in bed and appears to be in no acute distress. Objective - Vital Signs Vital signs: Vital Signs Temp 97.0 F L 03/30/17 11:39 Pulse 64 03/30/17 11:39 Resp 18 03/30/17 11:39 BP 115/51 03/30/17 11:39 Pulse Ox 96 03/30/17 11:39 Intake & Output 03/29/17 03/30/17 03/30/17 18:59 06:59 18:59 Intake Total 1480 1480 240 Balance 1480 1480 240 Weight 146.5 kg Intake: Intake, IV Titration 400 1000 Amount Sodium Chloride 0.9% 1, 400 1000 000 ml @ 100 mls/hr IV . Q10H [facility] Rx#:[id number] Oral 1080 480 240 Other: Voiding Method Diaper Diaper Diaper Incontinent Incontinent Incontinent # Voids 2 1 - Exam PHYSICAL EXAM: GENERAL APPEARANCE: Patient is a well-developed, female who appears to be in no acute distress. HEENT: Normocephalic, atraumatic, no facial asymmetry is seen. Neck is supple with no masses felt. CARDIOVASCULAR: Regular rate and rhythm. ABDOMEN: Nontender, nondistended. EXTREMITIES: Show clubbing. NEUROLOGICAL EXAM: Patient is awake, alert, and oriented 3. Speech and language are normal. Strength is 4/5 on the right upper extremity and 4-/5 in the right lower extremity and 5-/5 on the left upper and lower extremity. Sensory exam is normal to light touch in all 4 extremities. Patient has a mild right facial droop on cranial nerve testing. No seizures or tremor is noted. - Labs CBC & Chem 7: 03/29/17 05:58 03/29/17 05:58 Labs: Abnormal Lab Results - Last 24 Hours (Table) 03/29/17 03/29/17 03/29/17 Range/Units 05:58 16:28 21:02 POC Glucose (mg/dL) 109 H (75-99) mg/dL Troponin I 0.086 H* (0.000-0.034) ng/mL Homocysteine 16.87 H (4.00-14.00) umol/L 03/30/17 Range/Units 11:52 POC Glucose (mg/dL) 101 H (75-99) mg/dL Troponin I (0.000-0.034) ng/mL Homocysteine (4.00-14.00) umol/L Microbiology - Last 24 Hours (Table) 03/28/17 07:31 Urine Culture - Final Urine,Voided Escherichia coli Assessment and Plan Plan: Impression: 1. Transient ischemic attack 2. History of previous ischemic stroke with residual right hemiparesis 3. Expressive aphasia, resolved 4. Chronic pain syndrome 5. Urinary tract infection Recommendation: Patient does appear to have suffered a transient ischemic attack with transient episode of expressive aphasia and questionable left upper extremity weakness. Her symptoms have completely resolved. As mentioned above , computed tomography scan of the brain showed no acute findings. CT did show old left-sided stroke. Carotid Doppler was negative for any hemodynamically significant stenosis. Her lipid panel was within normal limits except for low HDL of 37. Homocystine level is elevated and I will start her on Foltx daily. EEG was normal. Patient reports she participated in physical therapy following her stroke 4 years ago and it is not clear why she did not continue. I recommend continuing physical therapy and occupational therapy. Continue aspirin 325 mg daily. Continue statin therapy. As for her chronic pain syndrome, I recommend patient be weaned off the Duragesic patch, however, this can be done as an outpatient. Continue current medical management. Continue neurological checks. Patient is stable from a neurological standpoint for discharge. I will continue to follow with you on an as-needed basis. Feel free to call with any questions or concerns. I performed an examination of the patient and discussed the management with the WIRE BRUSHER. I have reviewed the WIRE BRUSHER notes and agree with the findings and plan of care.
[2017-03-30 16:24] LABS: Glucose,Whole Blood 103 mg/dL (75-99)
[2017-03-30] MEDS: PRAVASTATIN SODIUM 40 MG TAB PO SCH (20:27)
[2017-03-30] MEDS: SERTRALINE 50 MG TAB PO SCH (20:27)
[2017-03-30] MEDS: PRAMIPEXOLE 0.125 MG TAB PO SCH (20:27)
[2017-03-30] MEDS: MINERAL OIL-WHITE PETROLATUM 120 GM JAR TOPICAL SCH (20:28)
[2017-03-30 20:59] LABS: Glucose,Whole Blood 91 mg/dL (75-99)
[2017-03-31 06:10] LABS: Basophils # (A) 0.1 k/uL (0-0.2); Basophils % (A) 1 %; Eosinophils # (A) 0.3 k/uL (0-0.7); Eosinophils % (A) 5 %; HGB 11.7 gm/dL (11.4-16.0); Lymphocytes # (A) 2.5 k/uL (1.0-4.8); Lymphocytes % (A) 37 %; MCH 28.4 pg (25.0-35.0); MCHC 31.8 g/dL (31.0-37.0); MCV 89.5 fL (80.0-100.0); Mean Platelet Volume 7.2; Monocytes # (A) 0.5 k/uL (0-1.0); Monocytes % (A) 7 %; Neutrophils # (A) 3.2 k/uL (1.3-7.7); Neutrophils % (A) 48 %; Platelet Count 168 k/uL (150-450); RBC 4.13 m/uL (3.80-5.40); RDW 13.2 % (11.5-15.5); WBC 6.8 k/uL (3.8-10.6)
[2017-03-31 06:13] LABS: Glucose,Whole Blood 84 mg/dL (75-99)
[2017-03-31 06:29] LABS: Anion Gap 7 mmol/L; Blood Urea Nitrogen 24 mg/dL (7-17); Carbon Dioxide 24 mmol/L (22-30); Chloride 105 mmol/L (98-107); Glucose 97 mg/dL (74-99); Potassium 4.4 mmol/L (3.5-5.1); Sodium 136 mmol/L (137-145)
[2017-03-31] MEDS: PANTOPRAZOLE 40 MG TABLET PO SCH (06:45)
[2017-03-31] MEDS: LEVOTHYROXINE 100 MCG TAB PO SCH (06:45)
[2017-03-31] MEDS: POLYETHYLENE GLYCOL 3350 17 GM POWD.PACK PO SCH (07:38)
[2017-03-31] MEDS: cefTRIAXone IN SWFI 1,000 MG/10 ML SYRINGE IVP SCH (08:24)
[2017-03-31] MEDS: ASPIRIN 325 MG TAB PO SCH (08:24)
[2017-03-31] MEDS: CYANOCOBALAMIN-FA-PYRIDOXINE 1 EACH TAB PO SCH (08:24)
[2017-03-31] MEDS: ARTIFICIAL TEARS-HYPROMELLOSE DROPS 15 ML BTL BOTH EYES SCH (08:24)
--- NOTE | 2017-03-31 10:07 | P.DS ---
Providers Date of admission: 03/30/17 15:00 Attending physician: Aicha Xie Consults: 03/28/17 07:50 Consult Physician Routine Consulting Provider: Home Phan Consult Reason/Comments: tia Do you want consulting provider notified?: Yes 03/29/17 15:05 Consult Physician Urgent Consulting Provider: Max Brumfield Consult Reason/Comments: Elevated troponin Do you want consulting provider notified?: Yes Primary care physician: [facility] [place] Course: Patient was admitted for TIA all the neurological workup is negative patient is on antiplatelet therapy and statin. No overnight events. Patient had minimally elevated troponin of 0.06 EKG will be obtain cardiology will be consulted not high enough to say ST elevation myocardial infarction patient will not be started on any IV heparin at this point of time. 03/30/2017 No overnight events patient was evaluated by cardiology no further recommendations from them. Patient is awaiting disposition to subacute rehabilitation. 03/31/2017 No overnight events patient will be discharged to subacute rehabilitation today patient the is also being treated for urinary tract infection urine culture showed E. coli pansensitive patient received 3 days of Rocephin will be discharged on 3 more days of ciprofloxacin find it twice a day PHYSICAL EXAMINATION: GENERAL: The patient is alert and oriented x3, not in any acute distress. Well developed, well nourished. HEENT: Pupils are round and equally reacting to light. EOMI. No scleral icterus. No conjunctival pallor. Normocephalic, atraumatic. No pharyngeal erythema. No thyromegaly. CARDIOVASCULAR: S1 and S2 present. No murmurs, rubs, or gallops. PULMONARY: Chest is clear to auscultation, no wheezing or crackles. ABDOMEN: Soft, nontender, nondistended, normoactive bowel sounds. No palpable organomegaly. MUSCULOSKELETAL: No joint swelling or deformity. EXTREMITIES: No cyanosis, clubbing, or pedal edema. NEUROLOGICAL: Patient does not have any new focal the it's patient is mostly bedbound SKIN: No rashes. Assessment and Plan Plan: -CVA or TIA involving the left cerebral hemisphere, stroke workup negative -hyperlipidemia -hypertension -Chronic low back pain -morbid obesity -Restless leg syndrome -Elevated troponins: Appreciate cardiology recommendations -Generalized deconditioning mostly bedbound we're working on disposition to a rehab facility in [place] Patient Condition at Discharge: Fair Plan - Discharge Summary New Discharge Prescriptions: New fentaNYL 50MCG/HR PATCH [Duragesic 50MCG/HR] 50 mcg TRANSDERM Q72H #5 patch Aspirin 325 mg PO DAILY tab Ciprofloxacin HCl [Cipro] 500 mg PO BID 3 Days #6 tab Continue Polyethylene Glycol 3350 [Miralax] 17 gm PO DAILY@0700 Pramipexole Di-HCl [Mirapex] 0.125 mg PO HS Sertraline HCl [Zoloft] 50 mg PO HS Pravastatin Sodium [Pravachol] 40 mg PO HS Cholecalciferol [Vitamin D3] 1,000 unit PO HS Levothyroxine Sodium [Synthroid] 100 mcg PO DAILY Colloidal Oatmeal [Eucerin Eczema Relief] 1 applic TOPICAL HS Cetirizine HCl [Zyrtec] 10 mg PO DAILY traMADol HCL [Ultram] 50 mg PO Q8H PRN #20 PRN Reason: Pain Triamcinolone 0.1% Cream [Kenalog] 1 applicatio TOPICAL DAILY PRN PRN Reason: DRY/REDDEDNED SCALY PATCHES Acetaminophen Tab [Tylenol] 650 mg PO Q6H PRN PRN Reason: Fever Magnesium Hydroxide [Milk of Magnesia] 2,400 mg PO DAILY PRN PRN Reason: Constipation Bisacodyl [Dulcolax] 10 mg RECTAL DAILY PRN PRN Reason: Constipation Menthol [Biofreeze] 1 applic TOPICAL BID Sennosides [Senna] 8.6 mg PO HS Omeprazole [PriLOSEC] 20 mg PO DAILY Artificial Tears-Hypromellose [Artificial Tear Drops] 1 drops BOTH EYES DAILY Discontinued Lisinopril [Prinivil] 10 mg PO DAILY fentaNYL 100MCG/HR PATCH [Duragesic 100MCG/HR] 1 patch TRANSDERM Q72H Discharge Medication List Cetirizine HCl [Zyrtec] 10 mg PO DAILY 08/28/16 [History] Cholecalciferol [Vitamin D3] 1,000 unit PO HS 08/28/16 [History] Colloidal Oatmeal [Eucerin Eczema Relief] 1 applic TOPICAL HS 08/28/16 [History] Levothyroxine Sodium [Synthroid] 100 mcg PO DAILY 08/28/16 [History] Polyethylene Glycol 3350 [Miralax] 17 gm PO DAILY@0700 08/28/16 [History] Pramipexole Di-HCl [Mirapex] 0.125 mg PO HS 08/28/16 [History] Pravastatin Sodium [Pravachol] 40 mg PO HS 08/28/16 [History] Sertraline HCl [Zoloft] 50 mg PO HS 08/28/16 [History] traMADol HCL [Ultram] 50 mg PO Q8H PRN #20 08/30/16 [Rx] Acetaminophen Tab [Tylenol] 650 mg PO Q6H PRN 03/28/17 [History] Artificial Tears-Hypromellose [Artificial Tear Drops] 1 drops BOTH EYES DAILY [History] Bisacodyl [Dulcolax] 10 mg RECTAL DAILY PRN 03/28/17 [History] Magnesium Hydroxide [Milk of Magnesia] 2,400 mg PO DAILY PRN 03/28/17 [History] Menthol [Biofreeze] 1 applic TOPICAL BID 03/28/17 [History] Omeprazole [PriLOSEC] 20 mg PO DAILY 03/28/17 [History] Sennosides [Senna] 8.6 mg PO HS 03/28/17 [History] Triamcinolone 0.1% Cream [Kenalog] 1 applicatio TOPICAL DAILY PRN 03/28/17 [ History] Aspirin 325 mg PO DAILY tab 03/31/17 [Rx] Ciprofloxacin HCl [Cipro] 500 mg PO BID 3 Days #6 tab 03/31/17 [Rx] fentaNYL 50MCG/HR PATCH [Duragesic 50MCG/HR] 50 mcg TRANSDERM Q72H #5 patch [Rx] Follow up Appointment(s)/Referral(s): Lasha Johnson MD [Primary Care Provider] - 1-2 days Discharge Disposition: TRANSFER TO [facility]
[2017-03-31 11:55] LABS: Glucose,Whole Blood 97 mg/dL (75-99)
[2017-03-31 17:04] LABS: Glucose,Whole Blood 104 mg/dL (75-99)
[2017-03-31] MEDS: PRAMIPEXOLE 0.125 MG TAB PO SCH (20:43)
[2017-03-31] MEDS: PRAVASTATIN SODIUM 40 MG TAB PO SCH (20:44)
[2017-03-31] MEDS: SERTRALINE 50 MG TAB PO SCH (20:44)
[2017-03-31] MEDS: MINERAL OIL-WHITE PETROLATUM 120 GM JAR TOPICAL SCH (20:45)
[2017-03-31 21:11] LABS: Glucose,Whole Blood 106 mg/dL (75-99)
[2017-04-01 06:07] LABS: Glucose,Whole Blood 101 mg/dL (75-99)
[2017-04-01] MEDS: LEVOTHYROXINE 100 MCG TAB PO SCH (07:09)
[2017-04-01] MEDS: POLYETHYLENE GLYCOL 3350 17 GM POWD.PACK PO SCH (07:09)
[2017-04-01] MEDS: PANTOPRAZOLE 40 MG TABLET PO SCH (07:09)
[2017-04-01] MEDS: ASPIRIN 325 MG TAB PO SCH (08:53)
[2017-04-01] MEDS: ARTIFICIAL TEARS-HYPROMELLOSE DROPS 15 ML BTL BOTH EYES SCH (08:53)
[2017-04-01] MEDS: CYANOCOBALAMIN-FA-PYRIDOXINE 1 EACH TAB PO SCH (08:53)
[2017-04-01] MEDS: cefTRIAXone IN SWFI 1,000 MG/10 ML SYRINGE IVP SCH (08:53)
[2017-04-01 11:55] LABS: Glucose,Whole Blood 114 mg/dL (75-99)
[2017-04-01 16:45] LABS: Glucose,Whole Blood 110 mg/dL (75-99)
--- NOTE | 2017-04-01 17:21 | XR ---
EXAMINATION TYPE: XR knee limited RT DATE OF EXAM: 04/01/2017 CLINICAL HISTORY: Right knee pain. Patient was unable to follow obstructions for positioning. TECHNIQUE: 2 views of the right knee are obtained. COMPARISON: None. FINDINGS: There is no gross evidence of acute fracture or dislocation in this limited examination. La teral images suboptimal and nearly nondiagnostic for fracture. There is diffuse osseous demineralizat ion present. No gross joint effusion is seen. IMPRESSION: Limited exam. No gross evidence of fracture of the right knee. Diffuse osseous deminerali zation.
--- NOTE | 2017-04-01 19:09 | PN ---
PROGRESS NOTE DATE OF SERVICE: 04/01/2017 The patient was seen in the room, resting comfortably in bed. She voices no complaints. Vital signs: Temperature 97.5, pulse 70, respiration 18, blood pressure 146/65, O2 saturation 97% on room air. The patient complains of right knee pain. Claims that she has always had this knee pain but has been worse since admission. HEENT atraumatic, normocephalic. Pupils equal and react to light. Extraocular movements intact. Buccal mucosa is moist. Neck is supple. No goiter or lymphadenopathy. JVD is negative. No carotid bruit heard. Lungs are clear to auscultate. No rales, rhonchi, or wheezes. Heart is regular rate rhythm without any murmurs or gallop rhythm. Abdomen is soft, nontender, nondistended. Bowel sounds positive. Extremities: No edema, clubbing or cyanosis. LABS: X-rays done on admission shows CBC, white blood count 6.8, hemoglobin 11.7, hematocrit 37, and platelet count of 168. Chemical profile: Sodium 136, potassium 4.4, chloride 105, bicarb 24, BUN 24, , creatinine 0.8. ASSESSMENT: 1. Cerebrovascular accident/transient ischemic attack involving left cerebral hemisphere. Stroke workup has been negative. 2. Type 2 diabetes mellitus. 3. Hyperlipidemia. 4. Hypertension. 5. Severe right knee pain. 6. Morbid obesity. 7. Restless legs syndrome. 8. Generalized deconditioning. PLAN: To obtain an x-ray of the patient's knee. We will continue all her current medications at this point. No changes will be made. The patient is scheduled to be discharged to skilled rehab and await arrangements for transfer. Continue current plan of care and discharged to skilled rehab once arrangements are made. MMODL / IJN: [id number] /
[2017-04-01] MEDS: MINERAL OIL-WHITE PETROLATUM 120 GM JAR TOPICAL SCH (20:00)
[2017-04-01] MEDS: SERTRALINE 50 MG TAB PO SCH (20:00)
[2017-04-01] MEDS: PRAMIPEXOLE 0.125 MG TAB PO SCH (20:00)
[2017-04-01] MEDS: PRAVASTATIN SODIUM 40 MG TAB PO SCH (20:00)
[2017-04-01 20:11] LABS: Glucose,Whole Blood 114 mg/dL (75-99)
[2017-04-02] MEDS ORDERED: traMADol 50 MG TAB PO PRN (01:25)
[2017-04-02] MEDS: LEVOTHYROXINE 100 MCG TAB PO SCH (06:13)
[2017-04-02 07:23] LABS: Glucose,Whole Blood 85 mg/dL (75-99)
[2017-04-02 08:29] VITALS: BP 129/76; PULSE 62; RESP 18; TEMP 97.9
[2017-04-02] MEDS: CYANOCOBALAMIN-FA-PYRIDOXINE 1 EACH TAB PO SCH (09:25)
[2017-04-02] MEDS: POLYETHYLENE GLYCOL 3350 17 GM POWD.PACK PO SCH (09:25)
[2017-04-02] MEDS: ARTIFICIAL TEARS-HYPROMELLOSE DROPS 15 ML BTL BOTH EYES SCH (09:26)
[2017-04-02] MEDS: PANTOPRAZOLE 40 MG TABLET PO SCH (09:26)
[2017-04-02] MEDS: ASPIRIN 325 MG TAB PO SCH (09:26)
[2017-04-02] MEDS: cefTRIAXone IN SWFI 1,000 MG/10 ML SYRINGE IVP SCH (09:29)
== END 2017-04-02 10:50 | DRG 69 ==
LOC: EC 06:32 → 6SEL 07:49 → OBSVTOIN 03-30 15:00 → 5MS5E 04-01 17:05
PROVIDERS: ADMIT Hospitalist; ATTEND Hospitalist
DX: G45.9 Transient cerebral ischemic attack, unspecified (principal); I69.351 Hemiplegia and hemiparesis following cerebral infarction affecting right dominant side; E66.01 Morbid (severe) obesity due to excess calories; E11.9 Type 2 diabetes mellitus without complications; I08.2 Rheumatic disorders of both aortic and tricuspid valves; R47.01 Aphasia; N39.0 Urinary tract infection, site not specified; E78.5 Hyperlipidemia, unspecified; F41.9 Anxiety disorder, unspecified; G25.81 Restless legs syndrome; G89.4 Chronic pain syndrome; I10 Essential (primary) hypertension; I70.0 Atherosclerosis of aorta; Z74.01 Bed confinement status; Z79.82 Long term (current) use of aspirin; Z87.891 Personal history of nicotine dependence; Z90.710 Acquired absence of both cervix and uterus; Z79.899 Other long term (current) drug therapy; Z79.890 Hormone replacement therapy; Z88.0 Allergy status to penicillin; M54.5 Low back pain; R74.8 Abnormal levels of other serum enzymes; B96.20 Unspecified Escherichia coli [E. coli] as the cause of diseases classified elsewhere
CPT/HCPCS: 36415; 70450; 71045; 71046; 80048; 80053; 80061; 81001; 82550; 82553; 83090; 83735; 84100; 84484; 85025; 85027; 85610; 85730; 87077; 87086; 87186; 93005; 93306; 93880; 94760; 95819; 96361; 96374; 99285